=== PATIENT | female | born 1945 | race Caucasian/White ===

== ENCOUNTER → 2016-11-07 | Outpatient (REF) | payer MEDICARE, OTHER ==
[~2016-11-07] MED LIST: /SYST15OP OD; AMOX500C PO; CALC600T7 PO; CIME200T PO; FISH1200 PO; HYDR200T2 PO; HYDR200T3 PO; ICAPCAP3 PO; IRONTAB3 PO; LASI20TA PO; META0.52 PO; METO-207 PO; MICR10CA PO; NIFE15CA PO; OMEP20CA3 PO; RAMI10CA PO; SYST1SOL OD; TAGA200T PO; TYLE325T5 PO; VERA180T11 PO; VITA-112 PO; [UNRECOGNIZED DRUG - CODE] XX; [UNRECOGNIZED DRUG - OTHER] PO; [UNRECOGNIZED DRUG - OTHER] PO
[2016-11-07 17:21] LABS: ANION GAP 7 MEQ/L (8-16); BLOOD UREA NITROGEN 22 MG/DL (7-18); CALCIUM LEVEL 8.5 MG/DL (8.8-10.2); CARBON DIOXIDE LEVEL 30 MEQ/L (21-32); CHLORIDE LEVEL 108 MEQ/L (98-107); CREATININE FOR GFR 0.79 MG/DL (0.55-1.02); GLOMERULAR FILTRATION RATE > 60.0 (>39); GLUCOSE, FASTING 78 MG/DL (83-110); MAGNESIUM LEVEL 2.2 MG/DL (1.8-2.4); POTASSIUM SERUM 4.2 MEQ/L (3.5-5.1); SODIUM LEVEL 145 MEQ/L (136-145)
[2016-11-07 18:32] LABS: MEAN CORPUSCULAR HEMOGLOBIN 31.9 pg (27.0-33.0); MEAN CORPUSCULAR HGB CONC 32.6 g/dl (32.0-36.5); MEAN CORPUSCULAR VOLUME 97.8 fl (80.0-96.0); RED CELL DISTRIBUTION WIDTH 13.6 % (11.5-14.5); WHITE BLOOD COUNT 3.4 K/mm3 (4.0-10.0)
== END ==
LOC: M SFHCCLAY 11:38
PROVIDERS: ATTEND Family Medicine
DX: I27.81 Cor pulmonale (chronic) (principal)
CPT/HCPCS: 80048; 83735; 85027; G0463

== ENCOUNTER → 2017-02-06 | Outpatient (REF) | payer MEDICARE, OTHER ==
[2017-02-06 16:46] LABS: MEAN CORPUSCULAR HEMOGLOBIN 32.4 pg (27.0-33.0); MEAN CORPUSCULAR HGB CONC 33.7 g/dl (32.0-36.5); MEAN CORPUSCULAR VOLUME 96.1 fl (80.0-96.0); RED CELL DISTRIBUTION WIDTH 13.1 % (11.5-14.5); WHITE BLOOD COUNT 3.8 K/mm3 (4.0-10.0)
[2017-02-06 19:56] LABS: ANION GAP 6 MEQ/L (8-16); BLOOD UREA NITROGEN 16 MG/DL (7-18); CALCIUM LEVEL 8.8 MG/DL (8.8-10.2); CARBON DIOXIDE LEVEL 29 MEQ/L (21-32); CHLORIDE LEVEL 109 MEQ/L (98-107); CREATININE FOR GFR 0.71 MG/DL (0.55-1.02); GLOMERULAR FILTRATION RATE > 60.0 (>39); GLUCOSE, FASTING 87 MG/DL (83-110); POTASSIUM SERUM 3.9 MEQ/L (3.5-5.1); SODIUM LEVEL 144 MEQ/L (136-145)
== END ==
LOC: M SFHCCLAY 12:58
PROVIDERS: ATTEND Family Medicine
DX: I10 Essential (primary) hypertension (principal); I35.9 Nonrheumatic aortic valve disorder, unspecified
CPT/HCPCS: 80048; 82550; 85027; G0463

== ENCOUNTER → 2017-06-03 | Outpatient (CLI) | payer MEDICARE, OTHER ==
[~2017-06-03] MED LIST changes: -METO-207 PO; +METO1TAB7 PO
--- NOTE | 2017-06-03 09:31 | REP ---
Bilateral rib series and PA chest: Comparisons are the PA and lateral chest study of 11/23/[address] of 11/24/2013. There are surgical clips in the right axilla, unchanged from both prior studies. Multiple old right healed rib fractures are again identified, unchanged from both prior studies. No acute rib fractures are identified on the right or the left. There are no lytic, blastic or destructive skeletal changes. There are sternotomy wires. This is unchanged. PA chest: There is no pneumothorax, hemothorax or pulmonary contusion. There are surgical clips in the right axilla. Cardiac size is normal. There is a fixed retrocardiac hiatal hernia, unchanged from both prior studies. There are sternotomy wires, unchanged. Impression: No acute rib fracture. Old healed right rib fractures are again identified. Surgical clips in the right axilla. Fixed hiatal hernia. Sternotomy wires. No acute cardiopulmonary findings.
== END ==
LOC: M CLY 08:35
PROVIDERS: ATTEND Family Medicine
DX: R07.81 Pleurodynia (principal)

== ENCOUNTER → 2017-09-10 | Outpatient (REF) | payer MEDICARE, OTHER | LOC: M SFHCCLAY 10:37 | PROVIDERS: ATTEND Nurse Practitioner Family | DX: R60.9 Edema, unspecified (principal); Z23 Encounter for immunization; Z53.8 Procedure and treatment not carried out for other reasons ==

== ENCOUNTER → 2017-10-08 | Outpatient (REF) | payer MEDICARE, OTHER ==
[2017-10-08 17:42] LABS: ANION GAP 8 MEQ/L (8-16); BLOOD UREA NITROGEN 23 MG/DL (7-18); CALCIUM LEVEL 8.7 MG/DL (8.8-10.2); CARBON DIOXIDE LEVEL 28 MEQ/L (21-32); CHLORIDE LEVEL 106 MEQ/L (98-107); CREATININE FOR GFR 0.79 MG/DL (0.55-1.02); GLOMERULAR FILTRATION RATE > 60.0 (>39); GLUCOSE, FASTING 88 MG/DL (70-100); HEMATOCRIT 37.3 % (36.0-47.0); HEMOGLOBIN 12.2 g/dl (12.0-16.0); MEAN CORPUSCULAR HGB CONC 32.7 g/dl (32.0-36.5); MEAN CORPUSCULAR VOLUME 91.6 fl (80.0-96.0); PLATELET COUNT, AUTOMATED 131 10^3/uL (150-450); POTASSIUM SERUM 4.3 MEQ/L (3.5-5.1); RED BLOOD COUNT 4.07 10^6/uL (4.00-5.40); RED CELL DISTRIBUTION WIDTH 12.4 % (11.5-14.5); SODIUM LEVEL 142 MEQ/L (136-145)
== END ==
LOC: M SFHCCLAY 09:41
DX: R60.9 Edema, unspecified (principal); I10 Essential (primary) hypertension; Z95.3 Presence of xenogenic heart valve
CPT/HCPCS: 83735

== ENCOUNTER 2017-11-02 09:30 | Inpatient (IN) | payer MEDICARE, OTHER ==
[2017-11-02 10:13] LABS: BASO % 0.1 % (0.0-1.0); HEMATOCRIT 38.3 % (36.0-47.0); HEMOGLOBIN 12.6 g/dl (12.0-16.0); IMMATURE GRANULOCYTE % 0.3 % (0-3.0); LYMPH # 0.4 10^3/uL (1.5-4.5); MEAN CORPUSCULAR HEMOGLOBIN 29.4 pg (27.0-33.0); MEAN CORPUSCULAR HGB CONC 32.9 g/dl (32.0-36.5); MEAN CORPUSCULAR VOLUME 89.5 fl (80.0-96.0); MONO # 0.5 10^3/uL (0.0-0.8); MONO % 6.2 % (0.0-5.0); NEUTROPHILS # 6.3 10^3/uL (1.8-7.7); NEUTROPHILS % 87.4 % (36.0-66.0); PLATELET COUNT, AUTOMATED 128 10^3/uL (150-450); RED BLOOD COUNT 4.28 10^6/uL (4.00-5.40); RED CELL DISTRIBUTION WIDTH 12.6 % (11.5-14.5); WHITE BLOOD COUNT 7.2 10^3/uL (4.0-10.0)
[2017-11-02 10:39] LABS: ANION GAP 9 MEQ/L (8-16); BLOOD UREA NITROGEN 16 MG/DL (7-18); CALCIUM LEVEL 8.5 MG/DL (8.8-10.2); CARBON DIOXIDE LEVEL 28 MEQ/L (21-32); CHLORIDE LEVEL 105 MEQ/L (98-107); CK-MB VALUE MASS 11.7 NG/ML (0.0-3.6); CPK CREATINE PHOSPHOKINASE 510 U/L (26-192); CREATININE FOR GFR 0.61 MG/DL (0.55-1.30); GLOMERULAR FILTRATION RATE > 60.0 (>39); GLUCOSE, FASTING 117 MG/DL (70-100); MB/CK RELATIVE INDEX 2.29 (< OR =4); POTASSIUM SERUM 3.5 MEQ/L (3.5-5.1); SODIUM LEVEL 142 MEQ/L (136-145); TROPONIN I 0.04 NG/ML (< 0.10)
[2017-11-02 10:42] LABS: INR 0.93; PARTIAL THROMBOPLASTIN TIME 26.5 SECONDS (26.8-37.9); PROTHROMBIN TIME 12.5 SECONDS (12.4-14.5)
[2017-11-02] MEDS: NS 1,000 ML IV ×2 (11:13→18:14)
[2017-11-02] MEDS: MORPHINE 2 MG/ML 1ML SYRINGE (J2270) IV ×2 (11:13→13:23)
[2017-11-02] MEDS: ONDANSETRON 4MG/2ML VIAL (J2405) IV (11:13)
[2017-11-02] MEDS: LABETALOL HCL 100 MG/20 ML VIAL IV (12:09)
[2017-11-02] MEDS: LABETALOL 100 MG TAB PO (13:23)
[2017-11-02] MEDS: LOSARTAN 50 MG TAB PO (18:23)
[2017-11-02] MEDS: MORPHINE 4 MG/ML 1ML VIAL (J2270) IV (23:02)
[2017-11-03] MEDS: MORPHINE 4 MG/ML 1ML VIAL (J2270) IV ×3 (01:28→20:09)
[2017-11-03] MEDS: NS 1,000 ML IV ×2 (04:36→10:12)
[2017-11-03] MEDS: LOSARTAN 50 MG TAB PO (10:00)
[2017-11-03 10:13] LABS: HEMATOCRIT 36.4 % (36.0-47.0); HEMOGLOBIN 11.7 g/dl (12.0-16.0); MEAN CORPUSCULAR HGB CONC 32.1 g/dl (32.0-36.5); MEAN CORPUSCULAR VOLUME 90.3 fl (80.0-96.0); PLATELET COUNT, AUTOMATED 104 10^3/uL (150-450); RED BLOOD COUNT 4.03 10^6/uL (4.00-5.40); RED CELL DISTRIBUTION WIDTH 12.8 % (11.5-14.5); WHITE BLOOD COUNT 6.4 10^3/uL (4.0-10.0)
[2017-11-03 10:39] LABS: ANION GAP 6 MEQ/L (8-16); BLOOD UREA NITROGEN 16 MG/DL (7-18); CALCIUM LEVEL 7.9 MG/DL (8.8-10.2); CARBON DIOXIDE LEVEL 30 MEQ/L (21-32); CHLORIDE LEVEL 108 MEQ/L (98-107); GLOMERULAR FILTRATION RATE > 60.0 (>39); GLUCOSE, FASTING 103 MG/DL (70-100); SODIUM LEVEL 144 MEQ/L (136-145)
[2017-11-03] MEDS ORDERED: ceFAZolin 2 GM/D5W 50 ML IV BAG (J0690 PER 500MG) As Ordered (15:15)
[2017-11-03] MEDS ORDERED: LIDOCAINE 2% INJ 100 MG/5 ML SDV (FOR ANES.) As Ordered (15:39)
[2017-11-03] MEDS ORDERED: PHENYLephrine HCL 500 MCG/5 ML (100MCG/ML) SYRINGE (J2370) As Ordered ×3 (15:39→15:40)
[2017-11-03] MEDS ORDERED: BUPIVACAINE HCL 0.5% 30 ML VIAL As Ordered (15:39)
[2017-11-03] MEDS ORDERED: PROPOFOL 200 MG/20 ML VIAL As Ordered (15:39)
[2017-11-03] MEDS ORDERED: fentaNYL 100 MCG/2 ML INJECTION (J3010) As Ordered (15:39)
[2017-11-03] MEDS ORDERED: MIDAZOLAM INJ 2 MG/2 ML VIAL (J2250) As Ordered (15:39)
[2017-11-03] MEDS ORDERED: KETAMINE HCL 200 MG/20 ML VIAL As Ordered (15:40)
[2017-11-03] MEDS: EPINEPHrine INJ 1 MG/ML 1ML AMP As Ordered (15:50)
[2017-11-03] MEDS: ceFAZolin 1GM INJ (J0690 PER 500MG) As Ordered (15:50)
[2017-11-03] MEDS ORDERED: ALBUTEROL SULFATE 2.5 MG/0.5 ML INH NEB SOLN As Ordered (17:33)
[2017-11-03] MEDS ORDERED: MEPERIDINE INJ 25 MG/ML VIAL (J2175) As Ordered (17:56)
[2017-11-03] MEDS ORDERED: FLEET ENEMA PR (18:00)
[2017-11-03] MEDS ORDERED: ONDANSETRON 4MG/2ML VIAL (J2405) IV (18:15)
[2017-11-03] MEDS ORDERED: HYDROmorphone HCL 1 MG/ML SYRINGE (J1170) IV (18:15)
[2017-11-03] MEDS: LR 1,000 ML IV ×2 (18:15→21:58)
[2017-11-03] MEDS ORDERED: fentaNYL 100 MCG/2 ML INJECTION (J3010) IV (18:15)
[2017-11-03] MEDS ORDERED: PERCOCET 5MG/325MG TAB PO (18:15)
[2017-11-03] MEDS ORDERED: MEPERIDINE INJ 25 MG/ML VIAL (J2175) IV (18:30)
[2017-11-03] MEDS: PERCOCET 5MG/325MG TAB PO (20:08)
[2017-11-04] MEDS: MORPHINE 4 MG/ML 1ML VIAL (J2270) IV ×2 (01:07→05:02)
[2017-11-04] MEDS: PERCOCET 5MG/325MG TAB PO (02:51)
[2017-11-04 05:26] LABS: HEMATOCRIT 30.3 % (36.0-47.0); HEMOGLOBIN 9.8 g/dl (12.0-16.0); MEAN CORPUSCULAR HEMOGLOBIN 29.2 pg (27.0-33.0); MEAN CORPUSCULAR HGB CONC 32.3 g/dl (32.0-36.5); MEAN CORPUSCULAR VOLUME 90.2 fl (80.0-96.0); RED BLOOD COUNT 3.36 10^6/uL (4.00-5.40); RED CELL DISTRIBUTION WIDTH 12.9 % (11.5-14.5); WHITE BLOOD COUNT 7.6 10^3/uL (4.0-10.0)
[2017-11-04 05:29] LABS: PLATELET COUNT, AUTOMATED 96 10^3/uL (150-450)
[2017-11-04 05:30] LABS: IMMATURE PLATELET FRACTION % 5.4 % (0.0-9.6)
[2017-11-04 05:36] LABS: ANION GAP 6 MEQ/L (8-16); BLOOD UREA NITROGEN 20 MG/DL (7-18); CARBON DIOXIDE LEVEL 29 MEQ/L (21-32); CHLORIDE LEVEL 108 MEQ/L (98-107); CREATININE FOR GFR 0.71 MG/DL (0.55-1.30); GLOMERULAR FILTRATION RATE > 60.0 (>39); GLUCOSE, FASTING 110 MG/DL (70-100); SODIUM LEVEL 143 MEQ/L (136-145)
[2017-11-04] MEDS: ENOXAPARIN 40 MG/0.4 ML SYRINGE (J1650) SC (08:00)
[2017-11-04] MEDS: MOM 30ML SUSPENSION UDC PO (09:15)
[2017-11-04] MEDS: MIRALAX *UNIT DOSE* 17GM PACKET PO (09:15)
[2017-11-04] MEDS: SENOKOT S TAB PO ×2 (09:15→21:16)
[2017-11-04] MEDS ORDERED: SLF 3 ML SYR IV (11:30)
[2017-11-04] MEDS: ACETAMINOPHEN TAB 650MG DOSE (2X325MG) PO ×2 (12:57→21:41)
[2017-11-04] MEDS: LOSARTAN 50 MG TAB PO (12:57)
[2017-11-04] MEDS: SLF 3 ML SYR IV ×2 (13:59→21:16)
[2017-11-04] MEDS: HYDROXYCHLOROQUINE 200 MG TAB PO ×2 (13:59→21:16)
[2017-11-04] MEDS: traMADol 50 MG TAB PO ×2 (18:28→22:45)
[2017-11-05] MEDS: SLF 3 ML SYR IV ×3 (05:54→21:37)
[2017-11-05] MEDS: ENOXAPARIN 40 MG/0.4 ML SYRINGE (J1650) SC (08:00)
[2017-11-05 08:08] LABS: HEMATOCRIT 30.8 % (36.0-47.0); HEMOGLOBIN 9.9 g/dl (12.0-16.0); MEAN CORPUSCULAR HEMOGLOBIN 28.9 pg (27.0-33.0); MEAN CORPUSCULAR HGB CONC 32.1 g/dl (32.0-36.5); MEAN CORPUSCULAR VOLUME 90.1 fl (80.0-96.0); PLATELET COUNT, AUTOMATED 114 10^3/uL (150-450); RED BLOOD COUNT 3.42 10^6/uL (4.00-5.40); WHITE BLOOD COUNT 8.5 10^3/uL (4.0-10.0)
[2017-11-05] MEDS: LOSARTAN 50 MG TAB PO (08:55)
[2017-11-05] MEDS: MOM 30ML SUSPENSION UDC PO (08:55)
[2017-11-05] MEDS: HYDROXYCHLOROQUINE 200 MG TAB PO ×2 (08:55→21:37)
[2017-11-05] MEDS: MIRALAX *UNIT DOSE* 17GM PACKET PO (08:55)
[2017-11-05] MEDS: SENOKOT S TAB PO ×2 (08:55→21:37)
[2017-11-05] MEDS: traMADol 50 MG TAB PO (10:44)
[2017-11-05] MEDS ORDERED: METOPROLOL 5 MG/5 ML VIAL IV (12:56)
[2017-11-05] MEDS: METOPROLOL TART 25 MG TABLET PO ×3 (13:22→23:19)
[2017-11-05 13:31] LABS: ABG BASE EXCESS 2.3 (-2.0-2.0); ABG HCO3 26.3 MEQ/L (22.0-26.0); ABG O2 SATURATION 97.2 % (95.0-99.0); ABG PARTIAL PRESSURE CO2 38.4 mmHg (35.0-45.0); ABG PARTIAL PRESSURE O2 90.8 mmHg (75.0-100.0); ABG STANDARD HCO3 26.5 MEQ/L (22.0-26.0); ABG TOTAL CO2 27.4 MEQ/L (23.0-31.0); ABG pH (ARTERIAL) 7.453 UNITS (7.350-7.450)
[2017-11-05 14:19] LABS: CPK CREATINE PHOSPHOKINASE 288 U/L (26-192); MAGNESIUM LEVEL 2.7 MG/DL (1.8-2.4); TROPONIN I 0.83 NG/ML (< 0.10)
[2017-11-05 14:23] LABS: CK-MB VALUE MASS 2.1 NG/ML (0.0-3.6); MB/CK RELATIVE INDEX 0.72 (< OR =4)
[2017-11-05] MEDS: METOPROLOL 5 MG/5 ML VIAL IV (16:12)
[2017-11-05 20:08] LABS: AMMONIA 15 uMOL/L (<32); TROPONIN I 0.82 NG/ML (< 0.10)
[2017-11-05] MEDS: ACETAMINOPHEN TAB 650MG DOSE (2X325MG) PO (21:37)
[2017-11-05] MEDS: METOPROLOL TART 50 MG TAB PO (22:18)
[2017-11-06] MEDS: DIGOXIN INJ 0.5 MG/2 ML AMP (J1160) IV ×2 (00:18→01:50)
[2017-11-06] MEDS: SLF 3 ML SYR IV ×3 (05:07→20:07)
[2017-11-06] MEDS: METOPROLOL TART 25 MG TABLET PO (05:07)
[2017-11-06 05:34] LABS: HEMATOCRIT 31.7 % (36.0-47.0); HEMOGLOBIN 10.1 g/dl (12.0-16.0); MEAN CORPUSCULAR HEMOGLOBIN 28.9 pg (27.0-33.0); MEAN CORPUSCULAR HGB CONC 31.9 g/dl (32.0-36.5); MEAN CORPUSCULAR VOLUME 90.8 fl (80.0-96.0); PLATELET COUNT, AUTOMATED 122 10^3/uL (150-450); RED BLOOD COUNT 3.49 10^6/uL (4.00-5.40); RED CELL DISTRIBUTION WIDTH 13.3 % (11.5-14.5); WHITE BLOOD COUNT 7.8 10^3/uL (4.0-10.0)
[2017-11-06 05:58] LABS: ALBUMIN 2.1 GM/DL (3.2-5.2); ALBUMIN/GLOBULIN RATIO 0.51 (1.00-1.93); ALKALINE PHOSPHATASE 64 U/L (45-117); ALT/SGPT 17 U/L (12-78); ANION GAP 5 MEQ/L (8-16); AST/SGOT 28 U/L (7-37); BILIRUBIN,TOTAL 0.4 MG/DL (0.2-1.0); CARBON DIOXIDE LEVEL 29 MEQ/L (21-32); CHLORIDE LEVEL 105 MEQ/L (98-107); GLOMERULAR FILTRATION RATE > 60.0 (>39); GLUCOSE, FASTING 89 MG/DL (70-100); POTASSIUM SERUM 4.3 MEQ/L (3.5-5.1); SODIUM LEVEL 139 MEQ/L (136-145); TOTAL PROTEIN 6.2 GM/DL (6.4-8.2)
[2017-11-06 06:11] LABS: BLOOD UREA NITROGEN 32 MG/DL (7-18)
[2017-11-06 08:08] LABS: MAGNESIUM LEVEL 2.8 MG/DL (1.8-2.4)
[2017-11-06] MEDS: ENOXAPARIN 40 MG/0.4 ML SYRINGE (J1650) SC (08:11)
[2017-11-06] MEDS: MIRALAX *UNIT DOSE* 17GM PACKET PO (08:11)
[2017-11-06] MEDS: SENOKOT S TAB PO ×2 (08:12→20:06)
[2017-11-06] MEDS: ACETAMINOPHEN TAB 650MG DOSE (2X325MG) PO (08:12)
[2017-11-06] MEDS: HYDROXYCHLOROQUINE 200 MG TAB PO ×3 (08:12→20:06)
[2017-11-06] MEDS: LOSARTAN 25 MG TAB PO (09:54)
[2017-11-06] MEDS: DIGOXIN 0.125 MG TAB PO (09:55)
[2017-11-06] MEDS: METOPROLOL 5 MG/5 ML VIAL IV (10:41)
[2017-11-06] MEDS: METOPROLOL TART 50 MG TAB PO ×2 (11:42→17:43)
[2017-11-06] MEDS: LORazepam 0.5 MG TAB PO (20:06)
[2017-11-06] MEDS ORDERED: ceFAZolin 2 GM/D5W 50 ML IV BAG (J0690 PER 500MG) (20:18)
[2017-11-06] MEDS: LORazepam 1 MG TAB PO (21:56)
[2017-11-07] MEDS: METOPROLOL TART 50 MG TAB PO ×3 (01:10→12:39)
[2017-11-07] MEDS: SLF 3 ML SYR IV ×3 (05:33→21:57)
[2017-11-07 05:53] LABS: HEMOGLOBIN 10.5 g/dl (12.0-16.0); MEAN CORPUSCULAR HEMOGLOBIN 28.5 pg (27.0-33.0); MEAN CORPUSCULAR HGB CONC 31.8 g/dl (32.0-36.5); MEAN CORPUSCULAR VOLUME 89.7 fl (80.0-96.0); PLATELET COUNT, AUTOMATED 140 10^3/uL (150-450); RED BLOOD COUNT 3.68 10^6/uL (4.00-5.40); RED CELL DISTRIBUTION WIDTH 12.9 % (11.5-14.5); WHITE BLOOD COUNT 7.6 10^3/uL (4.0-10.0)
[2017-11-07 06:18] LABS: ANION GAP 6 MEQ/L (8-16); BLOOD UREA NITROGEN 21 MG/DL (7-18); CALCIUM LEVEL 8.1 MG/DL (8.8-10.2); CARBON DIOXIDE LEVEL 28 MEQ/L (21-32); CHLORIDE LEVEL 106 MEQ/L (98-107); CREATININE FOR GFR 0.47 MG/DL (0.55-1.30); GLOMERULAR FILTRATION RATE > 60.0 (>39); GLUCOSE, FASTING 101 MG/DL (70-100); POTASSIUM SERUM 4.3 MEQ/L (3.5-5.1); SODIUM LEVEL 140 MEQ/L (136-145)
[2017-11-07] MEDS: ACETAMINOPHEN TAB 650MG DOSE (2X325MG) PO ×2 (06:51→21:57)
[2017-11-07] MEDS: HYDROXYCHLOROQUINE 200 MG TAB PO ×2 (08:49→21:54)
[2017-11-07] MEDS: DIGOXIN 0.125 MG TAB PO (08:50)
[2017-11-07] MEDS: SENOKOT S TAB PO ×2 (08:50→21:00)
[2017-11-07] MEDS: MIRALAX *UNIT DOSE* 17GM PACKET PO (08:51)
[2017-11-07] MEDS: APIXABAN 5 MG TAB (ELIQUIS) PO ×2 (08:51→21:54)
[2017-11-07] MEDS: oxyCODONE 5MG TAB PO ×2 (12:41→21:55)
[2017-11-07] MEDS: METOPROLOL TARTRATE 100 MG TAB PO (21:54)
[2017-11-08] MEDS: SLF 3 ML SYR IV ×3 (06:00→20:10)
[2017-11-08 06:32] LABS: HEMATOCRIT 32.1 % (36.0-47.0); HEMOGLOBIN 10.3 g/dl (12.0-16.0); MEAN CORPUSCULAR HEMOGLOBIN 28.6 pg (27.0-33.0); MEAN CORPUSCULAR HGB CONC 32.1 g/dl (32.0-36.5); MEAN CORPUSCULAR VOLUME 89.2 fl (80.0-96.0); PLATELET COUNT, AUTOMATED 158 10^3/uL (150-450); RED CELL DISTRIBUTION WIDTH 12.8 % (11.5-14.5); WHITE BLOOD COUNT 5.4 10^3/uL (4.0-10.0)
[2017-11-08 06:48] LABS: ANION GAP 5 MEQ/L (8-16); BLOOD UREA NITROGEN 20 MG/DL (7-18); CALCIUM LEVEL 8.4 MG/DL (8.8-10.2); CARBON DIOXIDE LEVEL 30 MEQ/L (21-32); CHLORIDE LEVEL 107 MEQ/L (98-107); CREATININE FOR GFR 0.47 MG/DL (0.55-1.30); GLOMERULAR FILTRATION RATE > 60.0 (>39); GLUCOSE, FASTING 92 MG/DL (70-100); POTASSIUM SERUM 4.3 MEQ/L (3.5-5.1); SODIUM LEVEL 142 MEQ/L (136-145)
[2017-11-08] MEDS: SENOKOT S TAB PO ×2 (08:56→20:10)
[2017-11-08] MEDS: DIGOXIN 0.125 MG TAB PO (08:56)
[2017-11-08] MEDS: APIXABAN 5 MG TAB (ELIQUIS) PO ×2 (08:56→20:10)
[2017-11-08] MEDS: MIRALAX *UNIT DOSE* 17GM PACKET PO (08:56)
[2017-11-08] MEDS: oxyCODONE 5MG TAB PO ×3 (08:57→23:16)
[2017-11-08] MEDS: LORazepam 1 MG TAB PO (08:57)
[2017-11-08] MEDS: METOPROLOL TARTRATE 100 MG TAB PO ×2 (08:59→20:10)
[2017-11-08] MEDS: HYDROXYCHLOROQUINE 200 MG TAB PO ×2 (14:14→20:10)
[2017-11-08] MEDS: LOSARTAN 25 MG TAB PO (16:14)
[2017-11-08] MEDS: NYSTATIN 100,000 UNITS/GM TOPICAL PWD 15 GM TOP (20:52)
[2017-11-09] MEDS: SLF 3 ML SYR IV ×3 (05:38→19:50)
[2017-11-09 05:51] LABS: HEMOGLOBIN 10.1 g/dl (12.0-16.0); MEAN CORPUSCULAR HEMOGLOBIN 28.3 pg (27.0-33.0); MEAN CORPUSCULAR HGB CONC 32.6 g/dl (32.0-36.5); MEAN CORPUSCULAR VOLUME 86.8 fl (80.0-96.0); PLATELET COUNT, AUTOMATED 194 10^3/uL (150-450); RED BLOOD COUNT 3.57 10^6/uL (4.00-5.40); RED CELL DISTRIBUTION WIDTH 12.9 % (11.5-14.5); WHITE BLOOD COUNT 5.6 10^3/uL (4.0-10.0)
[2017-11-09 06:24] LABS: ANION GAP 8 MEQ/L (8-16); BLOOD UREA NITROGEN 15 MG/DL (7-18); CALCIUM LEVEL 8.5 MG/DL (8.8-10.2); CARBON DIOXIDE LEVEL 29 MEQ/L (21-32); CHLORIDE LEVEL 102 MEQ/L (98-107); GLOMERULAR FILTRATION RATE > 60.0 (>39); GLUCOSE, FASTING 92 MG/DL (70-100); POTASSIUM SERUM 4.1 MEQ/L (3.5-5.1); SODIUM LEVEL 139 MEQ/L (136-145)
[2017-11-09] MEDS: LORazepam 1 MG TAB PO ×2 (06:47→18:53)
[2017-11-09] MEDS: LOSARTAN 25 MG TAB PO (09:41)
[2017-11-09] MEDS: DIGOXIN 0.125 MG TAB PO (09:43)
[2017-11-09] MEDS: METOPROLOL TARTRATE 100 MG TAB PO ×2 (09:43→19:51)
[2017-11-09] MEDS: SENOKOT S TAB PO ×2 (09:43→19:51)
[2017-11-09] MEDS: NYSTATIN 100,000 UNITS/GM TOPICAL PWD 15 GM TOP ×2 (09:44→19:51)
[2017-11-09] MEDS: MIRALAX *UNIT DOSE* 17GM PACKET PO (09:44)
[2017-11-09] MEDS: HYDROXYCHLOROQUINE 200 MG TAB PO ×2 (09:44→19:51)
[2017-11-09] MEDS: APIXABAN 5 MG TAB (ELIQUIS) PO ×2 (09:44→19:51)
[2017-11-09] MEDS: ESCITALOPRAM OXALATE 10 MG TAB (LEXAPRO) PO (17:36)
[2017-11-09] MEDS: ACETAMINOPHEN TAB 650MG DOSE (2X325MG) PO (17:36)
[2017-11-10 03:31] LABS: HEMATOCRIT 29.9 % (36.0-47.0); HEMOGLOBIN 9.9 g/dl (12.0-16.0); MEAN CORPUSCULAR HEMOGLOBIN 28.4 pg (27.0-33.0); MEAN CORPUSCULAR HGB CONC 33.1 g/dl (32.0-36.5); MEAN CORPUSCULAR VOLUME 85.9 fl (80.0-96.0); PLATELET COUNT, AUTOMATED 208 10^3/uL (150-450); RED BLOOD COUNT 3.48 10^6/uL (4.00-5.40); WHITE BLOOD COUNT 5.6 10^3/uL (4.0-10.0)
[2017-11-10 04:08] LABS: BLOOD UREA NITROGEN 14 MG/DL (7-18); GLUCOSE, FASTING 102 MG/DL (70-100)
[2017-11-10 04:09] LABS: ANION GAP 7 MEQ/L (8-16); CALCIUM LEVEL 7.9 MG/DL (8.8-10.2); CARBON DIOXIDE LEVEL 30 MEQ/L (21-32); CHLORIDE LEVEL 104 MEQ/L (98-107); CREATININE FOR GFR 0.51 MG/DL (0.55-1.30); DIGOXIN LEVEL 0.6 NG/ML (0.5-2.0); GLOMERULAR FILTRATION RATE > 60.0 (>39); MAGNESIUM LEVEL 1.9 MG/DL (1.8-2.4); SODIUM LEVEL 141 MEQ/L (136-145)
[2017-11-10] MEDS: SLF 3 ML SYR IV ×3 (05:36→20:33)
[2017-11-10] MEDS: LORazepam 1 MG TAB PO ×2 (05:36→18:02)
[2017-11-10] MEDS: MIRALAX *UNIT DOSE* 17GM PACKET PO (09:00)
[2017-11-10] MEDS: SENOKOT S TAB PO ×2 (09:00→20:33)
[2017-11-10] MEDS: NYSTATIN 100,000 UNITS/GM TOPICAL PWD 15 GM TOP ×2 (09:56→20:34)
[2017-11-10] MEDS: ESCITALOPRAM OXALATE 10 MG TAB (LEXAPRO) PO (09:56)
[2017-11-10] MEDS: METOPROLOL TARTRATE 100 MG TAB PO ×2 (10:01→20:33)
[2017-11-10] MEDS: DIGOXIN 0.125 MG TAB PO (10:02)
[2017-11-10] MEDS: APIXABAN 5 MG TAB (ELIQUIS) PO ×2 (10:02→20:33)
[2017-11-10] MEDS: HYDROXYCHLOROQUINE 200 MG TAB PO ×2 (10:03→20:33)
[2017-11-10] MEDS: LOSARTAN 50 MG TAB PO (10:03)
[2017-11-11] MEDS: oxyCODONE 5MG TAB PO ×2 (04:15→22:41)
[2017-11-11] MEDS: SLF 3 ML SYR IV ×3 (05:11→20:49)
[2017-11-11 06:10] LABS: HEMOGLOBIN 10.7 g/dl (12.0-16.0); MEAN CORPUSCULAR HGB CONC 32.4 g/dl (32.0-36.5); MEAN CORPUSCULAR VOLUME 86.4 fl (80.0-96.0); PLATELET COUNT, AUTOMATED 242 10^3/uL (150-450); RED BLOOD COUNT 3.82 10^6/uL (4.00-5.40); RED CELL DISTRIBUTION WIDTH 13.1 % (11.5-14.5); WHITE BLOOD COUNT 4.9 10^3/uL (4.0-10.0)
[2017-11-11 06:29] LABS: ANION GAP 8 MEQ/L (8-16); BLOOD UREA NITROGEN 14 MG/DL (7-18); CALCIUM LEVEL 8.4 MG/DL (8.8-10.2); CARBON DIOXIDE LEVEL 29 MEQ/L (21-32); CHLORIDE LEVEL 103 MEQ/L (98-107); CREATININE FOR GFR 0.56 MG/DL (0.55-1.30); GLOMERULAR FILTRATION RATE > 60.0 (>39); GLUCOSE, FASTING 84 MG/DL (70-100); SODIUM LEVEL 140 MEQ/L (136-145)
[2017-11-11] MEDS: MIRALAX *UNIT DOSE* 17GM PACKET PO (09:00)
[2017-11-11] MEDS: SENOKOT S TAB PO ×2 (09:12→20:31)
[2017-11-11] MEDS: APIXABAN 5 MG TAB (ELIQUIS) PO ×2 (09:18→20:47)
[2017-11-11] MEDS: ESCITALOPRAM OXALATE 10 MG TAB (LEXAPRO) PO (09:18)
[2017-11-11] MEDS: HYDROXYCHLOROQUINE 200 MG TAB PO ×2 (09:18→20:48)
[2017-11-11] MEDS: NYSTATIN 100,000 UNITS/GM TOPICAL PWD 15 GM TOP ×2 (09:20→20:48)
[2017-11-11] MEDS: METOPROLOL TARTRATE 100 MG TAB PO ×2 (09:20→20:48)
[2017-11-11] MEDS: LOSARTAN 50 MG TAB PO (09:20)
[2017-11-11] MEDS: DIGOXIN 0.25 MG TAB PO (09:34)
[2017-11-11] MEDS: POTASSIUM CHLORIDE 10 MEQ SR TABLET PO ×2 (10:33→20:47)
[2017-11-11] MEDS: TORSEMIDE 20 MG TAB PO (10:33)
[2017-11-11] MEDS: LORazepam 0.5 MG TAB PO (10:34)
[2017-11-11] MEDS: DIGOXIN INJ 0.5 MG/2 ML AMP (J1160) IV (13:19)
[2017-11-11] MEDS: FUROSEMIDE 40 MG/4 ML VIAL (J1940) IV (13:46)
[2017-11-11] MEDS: ONDANSETRON 4MG/2ML VIAL (J2405) IV (22:40)
[2017-11-12 04:08] LABS: HEMATOCRIT 33.1 % (36.0-47.0); HEMOGLOBIN 10.9 g/dl (12.0-16.0); MEAN CORPUSCULAR HGB CONC 32.9 g/dl (32.0-36.5); PLATELET COUNT, AUTOMATED 238 10^3/uL (150-450); RED BLOOD COUNT 3.76 10^6/uL (4.00-5.40); RED CELL DISTRIBUTION WIDTH 13.3 % (11.5-14.5); WHITE BLOOD COUNT 8.8 10^3/uL (4.0-10.0)
[2017-11-12 04:35] LABS: ANION GAP 8 MEQ/L (8-16); BLOOD UREA NITROGEN 22 MG/DL (7-18); CALCIUM LEVEL 8.3 MG/DL (8.8-10.2); CARBON DIOXIDE LEVEL 31 MEQ/L (21-32); CHLORIDE LEVEL 100 MEQ/L (98-107); GLOMERULAR FILTRATION RATE > 60.0 (>39); GLUCOSE, FASTING 83 MG/DL (70-100); POTASSIUM SERUM 3.9 MEQ/L (3.5-5.1); SODIUM LEVEL 139 MEQ/L (136-145)
[2017-11-12] MEDS: SLF 3 ML SYR IV ×3 (05:37→21:57)
[2017-11-12] MEDS: NS 1,000 ML IV (05:38)
[2017-11-12] MEDS: SENOKOT S TAB PO ×2 (09:00→21:56)
[2017-11-12] MEDS: MIRALAX *UNIT DOSE* 17GM PACKET PO (09:00)
[2017-11-12] MEDS: APIXABAN 5 MG TAB (ELIQUIS) PO ×2 (09:30→21:56)
[2017-11-12] MEDS: DIGOXIN 0.25 MG TAB PO (09:30)
[2017-11-12] MEDS: LOSARTAN 50 MG TAB PO (09:31)
[2017-11-12] MEDS: METOPROLOL TARTRATE 100 MG TAB PO ×2 (09:31→22:02)
[2017-11-12] MEDS: TORSEMIDE 20 MG TAB PO (09:31)
[2017-11-12] MEDS: POTASSIUM CHLORIDE 10 MEQ SR TABLET PO (09:32)
[2017-11-12] MEDS: HYDROXYCHLOROQUINE 200 MG TAB PO ×2 (09:32→21:57)
[2017-11-12] MEDS: ESCITALOPRAM OXALATE 10 MG TAB (LEXAPRO) PO (09:33)
[2017-11-12] MEDS: NYSTATIN 100,000 UNITS/GM TOPICAL PWD 15 GM TOP ×2 (09:33→21:57)
[2017-11-12] MEDS: LORazepam 0.5 MG TAB PO (15:10)
[2017-11-12] MEDS ORDERED: METOPROLOL TART 50 MG TAB PO (18:00)
[2017-11-12] MEDS: AMIODARONE 200 MG TAB (PACERONE) PO (22:01)
[2017-11-12] MEDS: POTASSIUM CHLORIDE 10% LIQ 20 MEQ/15 ML UDC PO (23:08)
[2017-11-13] MEDS: METOPROLOL TART 50 MG TAB PO ×5 (05:16→23:52)
[2017-11-13] MEDS: SLF 3 ML SYR IV ×3 (05:16→21:19)
[2017-11-13 07:05] LABS: HEMATOCRIT 34.5 % (36.0-47.0); HEMOGLOBIN 11.2 g/dl (12.0-16.0); MEAN CORPUSCULAR HEMOGLOBIN 28.5 pg (27.0-33.0); MEAN CORPUSCULAR HGB CONC 32.5 g/dl (32.0-36.5); MEAN CORPUSCULAR VOLUME 87.8 fl (80.0-96.0); PLATELET COUNT, AUTOMATED 265 10^3/uL (150-450); RED BLOOD COUNT 3.93 10^6/uL (4.00-5.40); RED CELL DISTRIBUTION WIDTH 13.3 % (11.5-14.5); WHITE BLOOD COUNT 7.5 10^3/uL (4.0-10.0)
[2017-11-13 07:27] LABS: ANION GAP 7 MEQ/L (8-16); BLOOD UREA NITROGEN 31 MG/DL (7-18); CALCIUM LEVEL 8.9 MG/DL (8.8-10.2); CARBON DIOXIDE LEVEL 33 MEQ/L (21-32); CHLORIDE LEVEL 99 MEQ/L (98-107); CREATININE FOR GFR 0.81 MG/DL (0.55-1.30); GLOMERULAR FILTRATION RATE > 60.0 (>39); GLUCOSE, FASTING 85 MG/DL (70-100); SODIUM LEVEL 139 MEQ/L (136-145)
[2017-11-13] MEDS: MIRALAX *UNIT DOSE* 17GM PACKET PO (09:45)
[2017-11-13] MEDS: TORSEMIDE 20 MG TAB PO (09:45)
[2017-11-13] MEDS: APIXABAN 5 MG TAB (ELIQUIS) PO ×2 (09:46→21:17)
[2017-11-13] MEDS: POTASSIUM CHLORIDE 10% LIQ 20 MEQ/15 ML UDC PO ×2 (09:46→21:17)
[2017-11-13] MEDS: SENOKOT S TAB PO ×2 (09:46→21:00)
[2017-11-13] MEDS: HYDROXYCHLOROQUINE 200 MG TAB PO ×2 (09:46→21:17)
[2017-11-13] MEDS: LOSARTAN 50 MG TAB PO (09:46)
[2017-11-13] MEDS: AMIODARONE 200 MG TAB (PACERONE) PO ×4 (09:46→21:17)
[2017-11-13] MEDS: ESCITALOPRAM OXALATE 10 MG TAB (LEXAPRO) PO (09:46)
[2017-11-13] MEDS: NYSTATIN 100,000 UNITS/GM TOPICAL PWD 15 GM TOP ×2 (09:47→21:00)
[2017-11-13 11:11] LABS: BEDSIDE GLUCOSE 127 MG/DL (83-110)
[2017-11-13 12:48] LABS: ANION GAP 8 MEQ/L (8-16); BLOOD UREA NITROGEN 35 MG/DL (7-18); CALCIUM LEVEL 8.9 MG/DL (8.8-10.2); CARBON DIOXIDE LEVEL 31 MEQ/L (21-32); CHLORIDE LEVEL 99 MEQ/L (98-107); CK-MB VALUE MASS 1.2 NG/ML (0.0-3.6); CPK CREATINE PHOSPHOKINASE 33 U/L (26-192); CREATININE FOR GFR 0.95 MG/DL (0.55-1.30); GLOMERULAR FILTRATION RATE > 60.0 (>39); GLUCOSE, FASTING 120 MG/DL (70-100); MAGNESIUM LEVEL 2.4 MG/DL (1.8-2.4); MB/CK RELATIVE INDEX 3.63 (< OR =4); POTASSIUM SERUM 4.5 MEQ/L (3.5-5.1); SODIUM LEVEL 138 MEQ/L (136-145); TROPONIN I 0.06 NG/ML (< 0.10)
[2017-11-13] MEDS: NS 500 ML IV (13:21)
[2017-11-13] MEDS ORDERED: PILL CUTTER/CRUSHER XX (18:15)
[2017-11-13] MEDS: D5W/0.45% SODIUM CHLORIDE 1,000 ML IV (18:19)
[2017-11-13] MEDS: NS 1,000 ML IV (21:17)
[2017-11-14] MEDS: NS 1,000 ML IV ×3 (04:54→20:14)
[2017-11-14] MEDS: SLF 3 ML SYR IV ×3 (05:17→20:14)
[2017-11-14] MEDS: METOPROLOL TART 50 MG TAB PO ×4 (05:21→23:35)
[2017-11-14 05:49] LABS: HEMATOCRIT 33.3 % (36.0-47.0); HEMOGLOBIN 10.7 g/dl (12.0-16.0); MEAN CORPUSCULAR HEMOGLOBIN 28.2 pg (27.0-33.0); MEAN CORPUSCULAR HGB CONC 32.1 g/dl (32.0-36.5); MEAN CORPUSCULAR VOLUME 87.9 fl (80.0-96.0); PLATELET COUNT, AUTOMATED 235 10^3/uL (150-450); RED BLOOD COUNT 3.79 10^6/uL (4.00-5.40); RED CELL DISTRIBUTION WIDTH 13.3 % (11.5-14.5); WHITE BLOOD COUNT 7.5 10^3/uL (4.0-10.0)
[2017-11-14 06:05] LABS: ANION GAP 5 MEQ/L (8-16); BLOOD UREA NITROGEN 33 MG/DL (7-18); CALCIUM LEVEL 8.2 MG/DL (8.8-10.2); CARBON DIOXIDE LEVEL 32 MEQ/L (21-32); CHLORIDE LEVEL 102 MEQ/L (98-107); CREATININE FOR GFR 0.99 MG/DL (0.55-1.30); GLOMERULAR FILTRATION RATE 58.5 (>39); GLUCOSE, FASTING 93 MG/DL (70-100); POTASSIUM SERUM 3.7 MEQ/L (3.5-5.1); SODIUM LEVEL 139 MEQ/L (136-145)
[2017-11-14] MEDS: NYSTATIN 100,000 UNITS/GM TOPICAL PWD 15 GM TOP ×2 (09:00→20:14)
[2017-11-14] MEDS: MIRALAX *UNIT DOSE* 17GM PACKET PO (09:00)
[2017-11-14] MEDS: SENOKOT S TAB PO ×2 (09:00→20:14)
[2017-11-14] MEDS: HYDROXYCHLOROQUINE 200 MG TAB PO ×2 (09:04→20:14)
[2017-11-14] MEDS: APIXABAN 5 MG TAB (ELIQUIS) PO ×2 (09:04→20:13)
[2017-11-14] MEDS: AMIODARONE 200 MG TAB (PACERONE) PO ×4 (09:04→20:14)
[2017-11-14] MEDS: ESCITALOPRAM OXALATE 10 MG TAB (LEXAPRO) PO (09:04)
[2017-11-14] MEDS: POTASSIUM CHLORIDE 10% LIQ 20 MEQ/15 ML UDC PO ×2 (09:05→20:13)
[2017-11-14 09:20] LABS: CPK CREATINE PHOSPHOKINASE 25 U/L (26-192); TROPONIN I 0.06 NG/ML (< 0.10)
[2017-11-15] MEDS: METOPROLOL TART 50 MG TAB PO ×6 (01:48→17:20)
[2017-11-15 05:03] LABS: HEMOGLOBIN 10.3 g/dl (12.0-16.0); MEAN CORPUSCULAR HEMOGLOBIN 28.2 pg (27.0-33.0); MEAN CORPUSCULAR HGB CONC 32.2 g/dl (32.0-36.5); MEAN CORPUSCULAR VOLUME 87.7 fl (80.0-96.0); PLATELET COUNT, AUTOMATED 217 10^3/uL (150-450); RED BLOOD COUNT 3.65 10^6/uL (4.00-5.40); RED CELL DISTRIBUTION WIDTH 13.3 % (11.5-14.5); WHITE BLOOD COUNT 6.5 10^3/uL (4.0-10.0)
[2017-11-15 05:16] LABS: ANION GAP 5 MEQ/L (8-16); BLOOD UREA NITROGEN 21 MG/DL (7-18); CALCIUM LEVEL 8.2 MG/DL (8.8-10.2); CARBON DIOXIDE LEVEL 28 MEQ/L (21-32); CHLORIDE LEVEL 108 MEQ/L (98-107); CREATININE FOR GFR 0.61 MG/DL (0.55-1.30); GLOMERULAR FILTRATION RATE > 60.0 (>39); GLUCOSE, FASTING 89 MG/DL (70-100); POTASSIUM SERUM 4.2 MEQ/L (3.5-5.1); SODIUM LEVEL 141 MEQ/L (136-145)
[2017-11-15] MEDS: SLF 3 ML SYR IV ×3 (05:50→20:51)
[2017-11-15] MEDS: APIXABAN 5 MG TAB (ELIQUIS) PO ×2 (09:07→20:49)
[2017-11-15] MEDS: ESCITALOPRAM OXALATE 10 MG TAB (LEXAPRO) PO (09:07)
[2017-11-15] MEDS: HYDROXYCHLOROQUINE 200 MG TAB PO ×2 (09:07→20:50)
[2017-11-15] MEDS: SENOKOT S TAB PO ×2 (09:07→20:49)
[2017-11-15] MEDS: AMIODARONE 200 MG TAB (PACERONE) PO ×4 (09:07→20:50)
[2017-11-15] MEDS: MIRALAX *UNIT DOSE* 17GM PACKET PO (09:08)
[2017-11-15] MEDS: POTASSIUM CHLORIDE 10% LIQ 20 MEQ/15 ML UDC PO ×2 (09:08→20:50)
[2017-11-15] MEDS: NYSTATIN 100,000 UNITS/GM TOPICAL PWD 15 GM TOP ×2 (09:08→20:50)
[2017-11-15] MEDS: ONDANSETRON 4MG/2ML VIAL (J2405) IV (18:26)
[2017-11-16] MEDS: METOPROLOL TART 50 MG TAB PO ×5 (00:56→23:48)
[2017-11-16 05:50] LABS: HEMATOCRIT 30.4 % (36.0-47.0); HEMOGLOBIN 9.7 g/dl (12.0-16.0); MEAN CORPUSCULAR HEMOGLOBIN 28.2 pg (27.0-33.0); MEAN CORPUSCULAR HGB CONC 31.9 g/dl (32.0-36.5); MEAN CORPUSCULAR VOLUME 88.4 fl (80.0-96.0); PLATELET COUNT, AUTOMATED 201 10^3/uL (150-450); RED BLOOD COUNT 3.44 10^6/uL (4.00-5.40); RED CELL DISTRIBUTION WIDTH 13.4 % (11.5-14.5); WHITE BLOOD COUNT 7.2 10^3/uL (4.0-10.0)
[2017-11-16] MEDS: SLF 3 ML SYR IV ×3 (05:53→21:19)
[2017-11-16 06:05] LABS: ANION GAP 4 MEQ/L (8-16); BLOOD UREA NITROGEN 19 MG/DL (7-18); CALCIUM LEVEL 8.2 MG/DL (8.8-10.2); CARBON DIOXIDE LEVEL 29 MEQ/L (21-32); CHLORIDE LEVEL 107 MEQ/L (98-107); CREATININE FOR GFR 0.71 MG/DL (0.55-1.30); GLOMERULAR FILTRATION RATE > 60.0 (>39); GLUCOSE, FASTING 97 MG/DL (70-100); POTASSIUM SERUM 4.1 MEQ/L (3.5-5.1); SODIUM LEVEL 140 MEQ/L (136-145)
[2017-11-16] MEDS: ESCITALOPRAM OXALATE 10 MG TAB (LEXAPRO) PO (08:52)
[2017-11-16] MEDS: ACETAMINOPHEN TAB 650MG DOSE (2X325MG) PO (08:52)
[2017-11-16] MEDS: APIXABAN 5 MG TAB (ELIQUIS) PO ×2 (08:52→21:18)
[2017-11-16] MEDS: AMIODARONE 200 MG TAB (PACERONE) PO ×4 (08:53→21:18)
[2017-11-16] MEDS: POTASSIUM CHLORIDE 10% LIQ 20 MEQ/15 ML UDC PO ×2 (08:53→21:18)
[2017-11-16] MEDS: SENOKOT S TAB PO ×2 (08:53→21:17)
[2017-11-16] MEDS: MIRALAX *UNIT DOSE* 17GM PACKET PO (08:53)
[2017-11-16] MEDS: HYDROXYCHLOROQUINE 200 MG TAB PO ×2 (08:53→21:18)
[2017-11-16] MEDS: NYSTATIN 100,000 UNITS/GM TOPICAL PWD 15 GM TOP ×2 (14:19→21:18)
[2017-11-17] MEDS: METOPROLOL TART 50 MG TAB PO ×4 (06:00→23:36)
[2017-11-17 06:12] LABS: HEMATOCRIT 29.8 % (36.0-47.0); HEMOGLOBIN 9.5 g/dl (12.0-16.0); MEAN CORPUSCULAR HEMOGLOBIN 28.1 pg (27.0-33.0); MEAN CORPUSCULAR HGB CONC 31.9 g/dl (32.0-36.5); MEAN CORPUSCULAR VOLUME 88.2 fl (80.0-96.0); PLATELET COUNT, AUTOMATED 205 10^3/uL (150-450); RED BLOOD COUNT 3.38 10^6/uL (4.00-5.40); RED CELL DISTRIBUTION WIDTH 13.4 % (11.5-14.5); WHITE BLOOD COUNT 4.6 10^3/uL (4.0-10.0)
[2017-11-17 06:32] LABS: ANION GAP 4 MEQ/L (8-16); BLOOD UREA NITROGEN 16 MG/DL (7-18); CALCIUM LEVEL 8.2 MG/DL (8.8-10.2); CARBON DIOXIDE LEVEL 30 MEQ/L (21-32); CHLORIDE LEVEL 107 MEQ/L (98-107); CREATININE FOR GFR 0.62 MG/DL (0.55-1.30); GLOMERULAR FILTRATION RATE > 60.0 (>39); GLUCOSE, FASTING 87 MG/DL (70-100); POTASSIUM SERUM 4.1 MEQ/L (3.5-5.1); SODIUM LEVEL 141 MEQ/L (136-145)
[2017-11-17] MEDS: SLF 3 ML SYR IV ×3 (06:38→20:59)
[2017-11-17] MEDS: MIRALAX *UNIT DOSE* 17GM PACKET PO ×2 (09:00→09:45)
[2017-11-17] MEDS: HYDROXYCHLOROQUINE 200 MG TAB PO ×2 (09:45→20:59)
[2017-11-17] MEDS: APIXABAN 5 MG TAB (ELIQUIS) PO ×2 (09:45→20:59)
[2017-11-17] MEDS: AMIODARONE 200 MG TAB (PACERONE) PO ×4 (09:45→20:58)
[2017-11-17] MEDS: POTASSIUM CHLORIDE 10% LIQ 20 MEQ/15 ML UDC PO ×2 (09:45→20:58)
[2017-11-17] MEDS: ESCITALOPRAM OXALATE 10 MG TAB (LEXAPRO) PO (09:45)
[2017-11-17] MEDS: SENOKOT S TAB PO ×2 (09:45→20:59)
[2017-11-17] MEDS: NYSTATIN 100,000 UNITS/GM TOPICAL PWD 15 GM TOP ×2 (09:46→20:59)
[2017-11-17] MEDS: ONDANSETRON 4MG/2ML VIAL (J2405) IV (19:11)
[2017-11-18 05:24] LABS: HEMATOCRIT 30.1 % (36.0-47.0); HEMOGLOBIN 9.6 g/dl (12.0-16.0); MEAN CORPUSCULAR HEMOGLOBIN 28.1 pg (27.0-33.0); MEAN CORPUSCULAR HGB CONC 31.9 g/dl (32.0-36.5); PLATELET COUNT, AUTOMATED 214 10^3/uL (150-450); RED BLOOD COUNT 3.42 10^6/uL (4.00-5.40); RED CELL DISTRIBUTION WIDTH 13.4 % (11.5-14.5); WHITE BLOOD COUNT 4.8 10^3/uL (4.0-10.0)
[2017-11-18 05:38] LABS: ANION GAP 6 MEQ/L (8-16); BLOOD UREA NITROGEN 13 MG/DL (7-18); CALCIUM LEVEL 8.3 MG/DL (8.8-10.2); CARBON DIOXIDE LEVEL 30 MEQ/L (21-32); CHLORIDE LEVEL 105 MEQ/L (98-107); CREATININE FOR GFR 0.72 MG/DL (0.55-1.30); GLOMERULAR FILTRATION RATE > 60.0 (>39); GLUCOSE, FASTING 95 MG/DL (70-100); POTASSIUM SERUM 4.2 MEQ/L (3.5-5.1); SODIUM LEVEL 141 MEQ/L (136-145)
[2017-11-18] MEDS: METOPROLOL TART 50 MG TAB PO ×3 (06:17→17:17)
[2017-11-18] MEDS: SLF 3 ML SYR IV ×3 (06:17→21:47)
[2017-11-18] MEDS: NYSTATIN 100,000 UNITS/GM TOPICAL PWD 15 GM TOP ×2 (08:26→21:46)
[2017-11-18] MEDS: POTASSIUM CHLORIDE 10% LIQ 20 MEQ/15 ML UDC PO ×2 (08:26→21:47)
[2017-11-18] MEDS: SENOKOT S TAB PO ×2 (08:27→21:46)
[2017-11-18] MEDS: ESCITALOPRAM OXALATE 10 MG TAB (LEXAPRO) PO (08:27)
[2017-11-18] MEDS: AMIODARONE 200 MG TAB (PACERONE) PO ×2 (08:27→12:14)
[2017-11-18] MEDS: APIXABAN 5 MG TAB (ELIQUIS) PO ×2 (08:27→21:46)
[2017-11-18] MEDS: HYDROXYCHLOROQUINE 200 MG TAB PO ×2 (08:27→21:46)
[2017-11-18] MEDS: MIRALAX *UNIT DOSE* 17GM PACKET PO (08:27)
[2017-11-19 04:36] LABS: HEMATOCRIT 31.1 % (36.0-47.0); HEMOGLOBIN 9.9 g/dl (12.0-16.0); MEAN CORPUSCULAR HEMOGLOBIN 27.9 pg (27.0-33.0); MEAN CORPUSCULAR HGB CONC 31.8 g/dl (32.0-36.5); MEAN CORPUSCULAR VOLUME 87.6 fl (80.0-96.0); PLATELET COUNT, AUTOMATED 214 10^3/uL (150-450); RED BLOOD COUNT 3.55 10^6/uL (4.00-5.40); RED CELL DISTRIBUTION WIDTH 13.5 % (11.5-14.5)
[2017-11-19 04:58] LABS: ANION GAP 4 MEQ/L (8-16); BLOOD UREA NITROGEN 17 MG/DL (7-18); CALCIUM LEVEL 8.5 MG/DL (8.8-10.2); CARBON DIOXIDE LEVEL 31 MEQ/L (21-32); CHLORIDE LEVEL 106 MEQ/L (98-107); CREATININE FOR GFR 0.83 MG/DL (0.55-1.30); GLOMERULAR FILTRATION RATE > 60.0 (>39); GLUCOSE, FASTING 94 MG/DL (70-100); POTASSIUM SERUM 4.9 MEQ/L (3.5-5.1); SODIUM LEVEL 141 MEQ/L (136-145)
[2017-11-19] MEDS: METOPROLOL TART 50 MG TAB PO ×4 (06:00→17:51)
[2017-11-19] MEDS: SLF 3 ML SYR IV ×3 (06:00→20:41)
[2017-11-19] MEDS: HYDROXYCHLOROQUINE 200 MG TAB PO ×2 (08:50→20:40)
[2017-11-19] MEDS: NYSTATIN 100,000 UNITS/GM TOPICAL PWD 15 GM TOP ×2 (08:50→20:41)
[2017-11-19] MEDS: MIRALAX *UNIT DOSE* 17GM PACKET PO (08:50)
[2017-11-19] MEDS: APIXABAN 5 MG TAB (ELIQUIS) PO ×2 (08:50→20:40)
[2017-11-19] MEDS: SENOKOT S TAB PO ×2 (08:50→21:00)
[2017-11-19] MEDS: ESCITALOPRAM OXALATE 10 MG TAB (LEXAPRO) PO (08:50)
[2017-11-19] MEDS ORDERED: PROPOFOL 200 MG/20 ML VIAL As Ordered (16:30)
[2017-11-19 17:32] LABS: APPEARANCE, URINE MANUAL CLOUDY (CLEAR); COLOR, URINE MANUAL RED (YELLOW)
[2017-11-19 17:33] LABS: GLUCOSE, URINE (UA) MANUAL NEGATIVE (NEGATIVE); PH,URINE MAN 5.5 UNITS (5.0 - 7.0); SPECIFIC GRAVITY,URINE MANUAL 1.015 (1.002-1.035)
[2017-11-19 17:39] LABS: BILIRUBIN, URINE MANUAL NEGATIVE (NEGATIVE); BLOOD URINE MANUAL POSITIVE (NEGATIVE); KETONE, URINE MANUAL NEGATIVE (NEGATIVE); LEUKOCYTE ESTERASE, URINE MAN POSITIVE (NEGATIVE); MICROSCOPIC INDICATED? MAN YES (NO); PROTEIN, URINE MANUAL 2+ mg/dL (NEGATIVE); UROBILINOGEN, URINE MANUAL NORMAL (NORMAL)
[2017-11-19 17:40] LABS: NITRITE, URINE MANUAL NEGATIVE (NEGATIVE)
[2017-11-19] MEDS ORDERED: ONDANSETRON 4MG/2ML VIAL (J2405) IV (17:45)
[2017-11-19] MEDS: LR 1,000 ML IV (17:45)
[2017-11-19 18:01] LABS: RBC, URINE TNTC /hpf (0-3); SQUAMOUS EPITHELIAL CELL URINE MOD AMOUNT /hpf (SMALL AMT); WBC, URINE 40-50 /hpf (0-3)
[2017-11-19 18:02] LABS: BACTERIA, URINE LARGE AMOUNT; HYALINE CAST, URINE NONE SEEN /lpf (0-1); MICROSCOPIC EXAM PERFORMED
[2017-11-20 05:32] LABS: HEMATOCRIT 29.9 % (36.0-47.0); HEMOGLOBIN 9.3 g/dl (12.0-16.0); MEAN CORPUSCULAR HEMOGLOBIN 27.2 pg (27.0-33.0); MEAN CORPUSCULAR HGB CONC 31.1 g/dl (32.0-36.5); MEAN CORPUSCULAR VOLUME 87.4 fl (80.0-96.0); PLATELET COUNT, AUTOMATED 192 10^3/uL (150-450); RED BLOOD COUNT 3.42 10^6/uL (4.00-5.40); RED CELL DISTRIBUTION WIDTH 13.7 % (11.5-14.5); WHITE BLOOD COUNT 4.3 10^3/uL (4.0-10.0)
[2017-11-20 05:55] LABS: ANION GAP 6 MEQ/L (8-16); BLOOD UREA NITROGEN 19 MG/DL (7-18); CALCIUM LEVEL 8.5 MG/DL (8.8-10.2); CARBON DIOXIDE LEVEL 28 MEQ/L (21-32); CHLORIDE LEVEL 106 MEQ/L (98-107); CREATININE FOR GFR 0.81 MG/DL (0.55-1.30); GLOMERULAR FILTRATION RATE > 60.0 (>39); GLUCOSE, FASTING 87 MG/DL (70-100); POTASSIUM SERUM 4.3 MEQ/L (3.5-5.1); SODIUM LEVEL 140 MEQ/L (136-145)
[2017-11-20] MEDS: SLF 3 ML SYR IV ×3 (06:33→20:56)
[2017-11-20] MEDS: MIRALAX *UNIT DOSE* 17GM PACKET PO (08:11)
[2017-11-20] MEDS: SENOKOT S TAB PO ×2 (08:11→20:55)
[2017-11-20] MEDS: NYSTATIN 100,000 UNITS/GM TOPICAL PWD 15 GM TOP ×2 (09:16→20:56)
[2017-11-20] MEDS: HYDROXYCHLOROQUINE 200 MG TAB PO ×2 (09:17→20:55)
[2017-11-20] MEDS: ESCITALOPRAM OXALATE 10 MG TAB (LEXAPRO) PO (09:17)
[2017-11-20] MEDS: METOPROLOL SUCC *XL* 25MG TAB (TopROL *XL*) PO (09:17)
[2017-11-20] MEDS: APIXABAN 5 MG TAB (ELIQUIS) PO ×2 (10:48→20:55)
[2017-11-21] MEDS: SLF 3 ML SYR IV (05:30)
[2017-11-21 05:37] LABS: HEMATOCRIT 30.2 % (36.0-47.0); HEMOGLOBIN 9.5 g/dl (12.0-16.0); MEAN CORPUSCULAR HEMOGLOBIN 27.4 pg (27.0-33.0); MEAN CORPUSCULAR HGB CONC 31.5 g/dl (32.0-36.5); PLATELET COUNT, AUTOMATED 181 10^3/uL (150-450); RED BLOOD COUNT 3.47 10^6/uL (4.00-5.40); RED CELL DISTRIBUTION WIDTH 13.8 % (11.5-14.5); WHITE BLOOD COUNT 3.6 10^3/uL (4.0-10.0)
[2017-11-21 05:57] LABS: ANION GAP 5 MEQ/L (8-16); BLOOD UREA NITROGEN 15 MG/DL (7-18); CALCIUM LEVEL 8.6 MG/DL (8.8-10.2); CARBON DIOXIDE LEVEL 31 MEQ/L (21-32); CHLORIDE LEVEL 104 MEQ/L (98-107); CREATININE FOR GFR 0.74 MG/DL (0.55-1.30); GLOMERULAR FILTRATION RATE > 60.0 (>39); GLUCOSE, FASTING 83 MG/DL (70-100); SODIUM LEVEL 140 MEQ/L (136-145)
[2017-11-21] MEDS: APIXABAN 5 MG TAB (ELIQUIS) PO ×2 (08:34→21:49)
[2017-11-21] MEDS: HYDROXYCHLOROQUINE 200 MG TAB PO ×2 (08:34→21:49)
[2017-11-21] MEDS: SENOKOT S TAB PO ×2 (08:35→21:00)
[2017-11-21] MEDS: MIRALAX *UNIT DOSE* 17GM PACKET PO (08:35)
[2017-11-21] MEDS: ESCITALOPRAM OXALATE 10 MG TAB (LEXAPRO) PO (08:35)
[2017-11-21] MEDS: NYSTATIN 100,000 UNITS/GM TOPICAL PWD 15 GM TOP ×2 (08:36→21:00)
[2017-11-21] MEDS: METOPROLOL SUCC *XL* 25MG TAB (TopROL *XL*) PO (08:37)
[2017-11-21] MEDS: FAMOTIDINE 20 MG TAB PO (12:29)
[2017-11-21] MEDS: CEFTRIAXONE SOD 1 GM in APPROPRIATE DILUENT 1 EA IV (17:50)
[2017-11-21] MEDS ORDERED: NITROFURANTOIN (MACROBID) 100 MG CAP PO (21:00)
[2017-11-22] MEDS: FAMOTIDINE 20 MG TAB PO (09:44)
[2017-11-22] MEDS: HYDROXYCHLOROQUINE 200 MG TAB PO (09:44)
[2017-11-22] MEDS: ESCITALOPRAM OXALATE 10 MG TAB (LEXAPRO) PO (09:46)
[2017-11-22] MEDS: APIXABAN 5 MG TAB (ELIQUIS) PO (09:46)
[2017-11-22] MEDS: SENOKOT S TAB PO (09:46)
[2017-11-22] MEDS: MIRALAX *UNIT DOSE* 17GM PACKET PO (09:47)
[2017-11-22] MEDS: METOPROLOL SUCC *XL* 25MG TAB (TopROL *XL*) PO (09:49)
[2017-11-22] MEDS: NYSTATIN 100,000 UNITS/GM TOPICAL PWD 15 GM TOP (09:49)
== END 2017-11-22 14:17 | DRG 469 ==
LOC: M PCU 11-05 14:45 → M MSPAV 11-10 19:33 → M PCU 11-13 11:33 → M MSPAV 11-21 13:12 → M MS5PR 11-04 21:46 → M ED 09:30 → M ED INP 15:24 → M PCU 17:36
PROC: 0SRS0J9 Replacement of Left Hip Joint, Femoral Surface with Synthetic Substitute, Cemented, Open Approach (ICD-10-PCS; principal; 2017-11-03 14:59)
PROC: 5A2204Z Restoration of Cardiac Rhythm, Single (ICD-10-PCS; 2017-11-03 14:59)
DX: S72.042A Displaced fracture of base of neck of left femur, initial encounter for closed fracture (principal); I50.33 Acute on chronic diastolic (congestive) heart failure; I48.4 Atypical atrial flutter; I48.1 Persistent atrial fibrillation; N39.0 Urinary tract infection, site not specified; I11.0 Hypertensive heart disease with heart failure; I35.0 Nonrheumatic aortic (valve) stenosis; M34.9 Systemic sclerosis, unspecified; I48.0 Paroxysmal atrial fibrillation; B96.20 Unspecified Escherichia coli [E. coli] as the cause of diseases classified elsewhere; F03.90 Unspecified dementia, unspecified severity, without behavioral disturbance, psychotic disturbance, mood disturbance, and anxiety; D64.9 Anemia, unspecified; F32.9 Major depressive disorder, single episode, unspecified; R55 Syncope and collapse; W18.39XA Other fall on same level, initial encounter; I27.81 Cor pulmonale (chronic); R26.89 Other abnormalities of gait and mobility; Y92.000 Kitchen of unspecified non-institutional (private) residence as the place of occurrence of the external cause; Z79.899 Other long term (current) drug therapy; Z95.2 Presence of prosthetic heart valve; Z91.14 Patient's other noncompliance with medication regimen

== ENCOUNTER 2017-12-01 22:48 | Emergency (ER) | payer MEDICARE, OTHER ==
[2017-12-01 23:57] LABS: HEMATOCRIT 31.9 % (36.0-47.0); HEMOGLOBIN 10.3 g/dl (12.0-16.0); MEAN CORPUSCULAR HEMOGLOBIN 28.2 pg (27.0-33.0); MEAN CORPUSCULAR HGB CONC 32.3 g/dl (32.0-36.5); MEAN CORPUSCULAR VOLUME 87.4 fl (80.0-96.0); PLATELET COUNT, AUTOMATED 109 10^3/uL (150-450); RED BLOOD COUNT 3.65 10^6/uL (4.00-5.40); RED CELL DISTRIBUTION WIDTH 14.7 % (11.5-14.5)
[2017-12-02 00:25] LABS: ACETAMINOPHEN LEVEL 5.6 UG/ML (10.0-30.0); ALBUMIN 2.8 GM/DL (3.2-5.2); ALBUMIN/GLOBULIN RATIO 0.85 (1.00-1.93); ALKALINE PHOSPHATASE 73 U/L (45-117); ALT/SGPT 17 U/L (12-78); ANION GAP 8 MEQ/L (8-16); AST/SGOT 11 U/L (7-37); BILIRUBIN,DIRECT 0.1 MG/DL (0.0-0.2); BILIRUBIN,TOTAL 0.3 MG/DL (0.2-1.0); BLOOD UREA NITROGEN 24 MG/DL (7-18); CALCIUM LEVEL 8.2 MG/DL (8.8-10.2); CARBON DIOXIDE LEVEL 28 MEQ/L (21-32); CHLORIDE LEVEL 106 MEQ/L (98-107); CREATININE FOR GFR 0.69 MG/DL (0.55-1.30); ETHYL ALCOHOL (ETHANOL) < 0.003 % (0.000-0.010); GLOMERULAR FILTRATION RATE > 60.0 (>39); GLUCOSE, FASTING 90 MG/DL (70-100); POTASSIUM SERUM 4.2 MEQ/L (3.5-5.1); SALICYLATE LEVEL < 1.7 MG/DL (5.0-30.0); SODIUM LEVEL 142 MEQ/L (136-145); TOTAL PROTEIN 6.1 GM/DL (6.4-8.2)
[2017-12-02 00:43] LABS: AMPHETAMINES LEVEL URINE NEGATIVE (NEGATIVE); BARBITURATES URINE NEGATIVE (NEGATIVE); BENZODIAZEPINES URINE NEGATIVE (NEGATIVE); CANNABINOIDS URINE NEGATIVE (NEGATIVE); COCAINE METABOLITE URINE NEGATIVE (NEGATIVE); METHADONE URINE NEGATIVE (NEGATIVE); OPIATES URINE NEGATIVE (NEGATIVE); PHENCYCLIDINE URINE NEGATIVE (NEGATIVE)
[2017-12-02 02:54] LABS: KETONE, URINE AUTO RFX NEGATIVE (NEGATIVE); LEUKOCYTE ESTERASE UR AUTO RFX NEGATIVE (NEGATIVE); MUCUS, URINE RFX MODERATE (NEGATIVE); NITRITE, URINE AUTO RFX NEGATIVE (NEGATIVE); RBC, URINE AUTO RFX TNTC /HPF (0-3); SPECIFIC GRAVITY UR AUTO RFX 1.028 (1.002-1.035); SQUAM EPITHELIAL CELL UR AURFX 0 /HPF (0-6); WBC, URINE AUTO RFX 36 /HPF (0-3)
== END 2017-12-02 04:04 | disposition home or self-care (01) ==
LOC: M ED 22:48
DX: F41.8 Other specified anxiety disorders (principal); N20.1 Calculus of ureter; I25.10 Atherosclerotic heart disease of native coronary artery without angina pectoris; Z79.01 Long term (current) use of anticoagulants; Z79.899 Other long term (current) drug therapy
CPT/HCPCS: 70450

== ENCOUNTER 2018-01-03 08:53 | Day surgery (SDC) | payer MEDICARE, OTHER ==
[2018-01-03] MEDS ORDERED: LR 1,000 ML IV ×4 (09:15→14:15)
[2018-01-03] MEDS: LR 1,000 ML IV ×2 (10:18)
[2018-01-03] MEDS: AMPICILLIN SOD 2 GM in D5W MINI-BAG PLUS 100 ML IV ×2 (10:42→11:15)
[2018-01-03] MEDS ORDERED: ONDANSETRON 4MG/2ML VIAL (J2405) As Ordered ×4 (11:41→15:24)
[2018-01-03] MEDS ORDERED: LIDOCAINE 2% INJ 100 MG/5 ML SDV (FOR ANES.) As Ordered ×2 (11:41)
[2018-01-03] MEDS ORDERED: PROPOFOL 200 MG/20 ML VIAL As Ordered ×2 (11:41)
[2018-01-03] MEDS ORDERED: MIDAZOLAM INJ 2 MG/2 ML VIAL (J2250) As Ordered ×2 (11:42)
[2018-01-03] MEDS ORDERED: fentaNYL 100 MCG/2 ML INJECTION (J3010) As Ordered ×2 (11:42)
[2018-01-03] MEDS: GENTAMICIN 80 MG in APPROPRIATE DILUENT 1 EA IV (11:55)
[2018-01-03] MEDS: AMPICILLIN 1 GM VIAL As Ordered ×2 (12:15)
[2018-01-03] MEDS: CONRAY-60 60% 50ML VIAL (Q9961) As Ordered ×2 (12:27)
[2018-01-03] MEDS ORDERED: MEPERIDINE INJ 25 MG/ML VIAL (J2175) IV ×2 (14:15)
[2018-01-03] MEDS ORDERED: oxyBUTYnin 5 MG TAB PO ×2 (14:15)
[2018-01-03] MEDS ORDERED: PERCOCET 5MG/325MG TAB PO ×4 (14:15)
[2018-01-03] MEDS ORDERED: ACETAMINOPHEN TAB 650MG DOSE (2X325MG) PO ×2 (14:15)
[2018-01-03] MEDS ORDERED: fentaNYL 100 MCG/2 ML INJECTION (J3010) IV ×2 (14:15)
[2018-01-03] MEDS: ONDANSETRON 4MG/2ML VIAL (J2405) IV ×2 (15:29)
[2018-01-03] MEDS ORDERED: METOCLOPRAMIDE INJ 10MG/2ML VIAL (J2765) As Ordered ×2 (15:39)
[2018-01-03] MEDS: METOCLOPRAMIDE INJ 10MG/2ML VIAL (J2765) IV ×2 (15:50)
[2018-01-03] MEDS: PROMETHAZINE INJ 25 MG/ML VIAL (J2550) IV ×2 (16:45)
== END 2018-01-03 20:00 | disposition home or self-care (01) ==
LOC: M SDC 08:53
DX: N20.0 Calculus of kidney (principal); N13.5 Crossing vessel and stricture of ureter without hydronephrosis; I10 Essential (primary) hypertension; K21.9 Gastro-esophageal reflux disease without esophagitis; I48.91 Unspecified atrial fibrillation; D50.9 Iron deficiency anemia, unspecified; Z79.899 Other long term (current) drug therapy
CPT/HCPCS: 52356

== ENCOUNTER → 2018-01-08 | Outpatient (REF) | payer MEDICARE, OTHER ==
[2018-01-08 14:10] LABS: APPEARANCE, URINE MANUAL TURBID (CLEAR); COLOR, URINE MANUAL RED (YELLOW)
[2018-01-08 14:13] LABS: BILIRUBIN, URINE MANUAL NEGATIVE (NEGATIVE); BLOOD URINE MANUAL POSITIVE (NEGATIVE); GLUCOSE, URINE (UA) MANUAL NEGATIVE (NEGATIVE); KETONE, URINE MANUAL NEGATIVE (NEGATIVE); LEUKOCYTE ESTERASE, URINE MAN POSITIVE (NEGATIVE); MICROSCOPIC INDICATED? MAN YES (NO); NITRITE, URINE MANUAL NEGATIVE (NEGATIVE); PROTEIN, URINE MANUAL 1+ mg/dL (NEGATIVE); UROBILINOGEN, URINE MANUAL NORMAL (NORMAL)
[2018-01-08 14:14] LABS: BACTERIA, URINE MOD AMOUNT; HYALINE CAST, URINE 0-1 /lpf (0-1); MICROSCOPIC EXAM PERFORMED; RBC, URINE TNTC /hpf (0-3); SQUAMOUS EPITHELIAL CELL URINE SMALL AMOUNT /hpf (SMALL AMT); WBC, URINE 15-20 /hpf (0-3)
== END ==
LOC: SKLAB2 14:02 → SKLAB3 14:02
DX: N39.0 Urinary tract infection, site not specified (principal)
CPT/HCPCS: 81000

== ENCOUNTER → 2018-01-27 | Outpatient (REF) | payer MEDICARE, OTHER ==
[2018-01-27 09:45] LABS: ANION GAP 5 MEQ/L (8-16); BLOOD UREA NITROGEN 24 MG/DL (7-18); CALCIUM LEVEL 9.2 MG/DL (8.8-10.2); CARBON DIOXIDE LEVEL 31 MEQ/L (21-32); CHLORIDE LEVEL 104 MEQ/L (98-107); CREATININE FOR GFR 1.11 MG/DL (0.55-1.30); GLOMERULAR FILTRATION RATE 51.3 (>39); GLUCOSE, FASTING 101 MG/DL (70-100); POTASSIUM SERUM 4.2 MEQ/L (3.5-5.1); SODIUM LEVEL 140 MEQ/L (136-145)
== END ==
LOC: SKLAB3 12:44
DX: R94.6 Abnormal results of thyroid function studies (principal); I48.91 Unspecified atrial fibrillation; Z79.899 Other long term (current) drug therapy
CPT/HCPCS: 84443

== ENCOUNTER → 2018-02-06 | Outpatient (REF) | payer MEDICARE, OTHER ==
[2018-02-06 13:31] LABS: BASO % 0.7 % (0.0-1.0); EOS # 0.1 10^3/uL (0.0-0.50); EOS % 1.3 % (0.0-3.0); HEMATOCRIT 39.2 % (36.0-47.0); HEMOGLOBIN 12.5 g/dl (12.0-15.5); IMMATURE GRANULOCYTE % 0.3 % (0-3.0); LYMPH # 1.8 10^3/uL (1.5-4.5); LYMPH % 28.9 % (24.0-44.0); MEAN CORPUSCULAR HEMOGLOBIN 27.8 pg (27.0-33.0); MEAN CORPUSCULAR HGB CONC 31.9 g/dl (32.0-36.5); MEAN CORPUSCULAR VOLUME 87.1 fl (80.0-96.0); MONO # 0.7 10^3/uL (0.0-0.8); MONO % 11.8 % (0.0-5.0); NEUTROPHILS # 3.5 10^3/uL (1.8-7.7); PLATELET COUNT, AUTOMATED 127 10^3/uL (150-450); RED CELL DISTRIBUTION WIDTH 17.4 % (11.5-14.5); WHITE BLOOD COUNT 6.1 10^3/uL (4.0-10.0)
[2018-02-06 14:24] LABS: ALBUMIN 3.7 GM/DL (3.2-5.2); ALKALINE PHOSPHATASE 58 U/L (45-117); ALT/SGPT 19 U/L (12-78); ANION GAP 8 MEQ/L (8-16); AST/SGOT 17 U/L (7-37); BILIRUBIN,TOTAL 0.4 MG/DL (0.2-1.0); BLOOD UREA NITROGEN 30 MG/DL (7-18); CALCIUM LEVEL 8.8 MG/DL (8.8-10.2); CARBON DIOXIDE LEVEL 29 MEQ/L (21-32); CHLORIDE LEVEL 102 MEQ/L (98-107); CREATININE FOR GFR 1.37 MG/DL (0.55-1.30); GLOMERULAR FILTRATION RATE 40.2 (>39); GLUCOSE, FASTING 120 MG/DL (70-100); NT-PRO BNP 992 PG/ML (<125); POTASSIUM SERUM 4.5 MEQ/L (3.5-5.1); SODIUM LEVEL 139 MEQ/L (136-145); TOTAL PROTEIN 7.8 GM/DL (6.4-8.2)
== END ==
LOC: SKLAB3 11:54
DX: I48.91 Unspecified atrial fibrillation (principal); I50.9 Heart failure, unspecified
CPT/HCPCS: 84443

== ENCOUNTER 2018-08-29 12:05 | Inpatient (IN) | payer MEDICARE, OTHER ==
[2018-08-29 13:29] LABS: BASO % 0.6 % (0.0-1.0); HEMATOCRIT 40.2 % (36.0-47.0); HEMOGLOBIN 12.8 g/dl (12.0-15.5); IMMATURE GRANULOCYTE % 0.6 % (0-3.0); LYMPH # 1.2 10^3/uL (1.5-4.5); LYMPH % 25.4 % (24.0-44.0); MEAN CORPUSCULAR HEMOGLOBIN 30.1 pg (27.0-33.0); MEAN CORPUSCULAR HGB CONC 31.8 g/dl (32.0-36.5); MEAN CORPUSCULAR VOLUME 94.6 fl (80.0-96.0); MONO # 0.7 10^3/uL (0.0-0.8); MONO % 14.5 % (0.0-5.0); NEUTROPHILS # 2.9 10^3/uL (1.8-7.7); NEUTROPHILS % 58.9 % (36.0-66.0); PLATELET COUNT, AUTOMATED 137 10^3/uL (150-450); RED BLOOD COUNT 4.25 10^6/uL (4.00-5.40); RED CELL DISTRIBUTION WIDTH 12.5 % (11.5-14.5); WHITE BLOOD COUNT 4.9 10^3/uL (4.0-10.0)
[2018-08-29 13:59] LABS: ANION GAP 6 MEQ/L (8-16); BLOOD UREA NITROGEN 52 MG/DL (7-18); CALCIUM LEVEL 8.8 MG/DL (8.8-10.2); CARBON DIOXIDE LEVEL 28 MEQ/L (21-32); CHLORIDE LEVEL 104 MEQ/L (98-107); CREATININE FOR GFR 2.83 MG/DL (0.55-1.30); GLOMERULAR FILTRATION RATE 17.4 (>39); GLUCOSE, FASTING 90 MG/DL (70-100); POTASSIUM SERUM 4.7 MEQ/L (3.5-5.1); SODIUM LEVEL 138 MEQ/L (136-145)
[2018-08-29 15:12] LABS: AMORPHOUS SEDIMENT RFX SMALL (NEGATIVE); KETONE, URINE AUTO RFX NEGATIVE (NEGATIVE); LEUKOCYTE ESTERASE UR AUTO RFX NEGATIVE (NEGATIVE); NITRITE, URINE AUTO RFX NEGATIVE (NEGATIVE); RBC, URINE AUTO RFX 0 /HPF (0-3); SPECIFIC GRAVITY UR AUTO RFX 1.009 (1.002-1.035); SQUAM EPITHELIAL CELL UR AURFX 0 /HPF (0-6); WBC, URINE AUTO RFX 1 /HPF (0-3)
[2018-08-29] MEDS ORDERED: ONDANSETRON 4MG/2ML VIAL (J2405) IV (15:45)
[2018-08-29] MEDS: ACETAMINOPHEN TAB 650MG DOSE (2X325MG) PO (18:48)
[2018-08-29] MEDS: NS 1,000 ML IV (20:20)
[2018-08-29] MEDS: FAMOTIDINE 20 MG TAB PO (20:20)
[2018-08-29] MEDS: HYDROXYCHLOROQUINE 200 MG TAB PO (20:21)
[2018-08-29] MEDS ORDERED: APIXABAN 5 MG TAB (ELIQUIS) PO (21:00)
[2018-08-30] MEDS: NS 1,000 ML IV (06:19)
[2018-08-30 06:20] LABS: HEMATOCRIT 37.3 % (36.0-47.0); HEMOGLOBIN 11.8 g/dl (12.0-15.5); MEAN CORPUSCULAR HEMOGLOBIN 30.1 pg (27.0-33.0); MEAN CORPUSCULAR HGB CONC 31.6 g/dl (32.0-36.5); MEAN CORPUSCULAR VOLUME 95.2 fl (80.0-96.0); PLATELET COUNT, AUTOMATED 133 10^3/uL (150-450); RED BLOOD COUNT 3.92 10^6/uL (4.00-5.40); RED CELL DISTRIBUTION WIDTH 12.7 % (11.5-14.5); WHITE BLOOD COUNT 5.9 10^3/uL (4.0-10.0)
[2018-08-30 06:47] LABS: ALBUMIN 3.2 GM/DL (3.2-5.2); ALKALINE PHOSPHATASE 62 U/L (45-117); ALT/SGPT 22 U/L (12-78); ANION GAP 5 MEQ/L (8-16); AST/SGOT 19 U/L (7-37); BILIRUBIN,TOTAL 0.4 MG/DL (0.2-1.0); BLOOD UREA NITROGEN 44 MG/DL (7-18); CALCIUM LEVEL 8.2 MG/DL (8.8-10.2); CARBON DIOXIDE LEVEL 30 MEQ/L (21-32); CHLORIDE LEVEL 108 MEQ/L (98-107); CREATININE FOR GFR 2.52 MG/DL (0.55-1.30); GLOMERULAR FILTRATION RATE 19.9 (>39); GLUCOSE, FASTING 93 MG/DL (70-100); MAGNESIUM LEVEL 2.5 MG/DL (1.8-2.4); POTASSIUM SERUM 4.3 MEQ/L (3.5-5.1); SODIUM LEVEL 143 MEQ/L (136-145); TOTAL PROTEIN 7.2 GM/DL (6.4-8.2)
[2018-08-30] MEDS: BISOPROLOL FUM 2.5 MG PER 1/2TAB PO (09:00)
[2018-08-30] MEDS: DONEPEZIL 5 MG TAB PO (09:10)
[2018-08-30] MEDS: HYDROXYCHLOROQUINE 200 MG TAB PO ×2 (09:11→20:31)
[2018-08-30] MEDS: AMIODARONE 200 MG TAB (PACERONE) PO (09:11)
[2018-08-30] MEDS: KCL 20MEQ IN 0.45NS 1000ML 1,000 ML IV ×2 (11:26→16:10)
[2018-08-30] MEDS: QUEtiapine FUMARATE 50 MG TAB PO ×2 (11:26→20:31)
[2018-08-30] MEDS ORDERED: ceFAZolin 2 GM/D5W 50 ML IV BAG (J0690 PER 500MG) As Ordered (12:27)
[2018-08-30] MEDS ORDERED: DESFLURANE 240 ML INHALANT As Ordered (12:52)
[2018-08-30] MEDS ORDERED: MIDAZOLAM INJ 2 MG/2 ML VIAL (J2250) As Ordered (12:52)
[2018-08-30] MEDS ORDERED: LIDOCAINE 2% INJ 100 MG/5 ML SDV (FOR ANES.) As Ordered (12:52)
[2018-08-30] MEDS ORDERED: PROPOFOL 200 MG/20 ML VIAL As Ordered (12:52)
[2018-08-30] MEDS ORDERED: METOCLOPRAMIDE INJ 10MG/2ML VIAL (J2765) As Ordered (12:52)
[2018-08-30] MEDS ORDERED: ONDANSETRON 4MG/2ML VIAL (J2405) As Ordered (12:52)
[2018-08-30] MEDS ORDERED: fentaNYL 100 MCG/2 ML INJECTION (J3010) As Ordered (12:52)
[2018-08-30] MEDS ORDERED: dexameTHASONE 4 MG/ML 1ML VIAL (J1100) As Ordered (12:52)
[2018-08-30] MEDS: LIDOCAINE 2% 5ML JELLY UROJET As Ordered (13:05)
[2018-08-30] MEDS: LIDOCAINE 1% MDV 20ML VIAL As Ordered (13:05)
[2018-08-30] MEDS ORDERED: ePHEDrine SULFATE 25 MG/5 ML(5MG/ML) SYRINGE As Ordered (13:11)
[2018-08-30] MEDS: CONRAY-60 60% 50ML VIAL (Q9961) As Ordered (13:11)
[2018-08-30] MEDS ORDERED: NORCO, ANEXSIA 5/325MG TABLET (HYDROcodone/ACETAMINOPHEN) PO (14:00)
[2018-08-30] MEDS: LR 1,000 ML IV (14:00)
[2018-08-30] MEDS ORDERED: fentaNYL 100 MCG/2 ML INJECTION (J3010) IV (14:00)
[2018-08-30] MEDS ORDERED: ONDANSETRON 4MG/2ML VIAL (J2405) IV (14:00)
[2018-08-30] MEDS: HALOPERIDOL 5 MG/ML VIAL (J1630) IM (17:35)
[2018-08-30] MEDS: FAMOTIDINE 20 MG TAB PO (20:31)
[2018-08-31] MEDS: KCL 20MEQ IN 0.45NS 1000ML 1,000 ML IV ×2 (06:01→08:02)
[2018-08-31 06:36] LABS: HEMATOCRIT 36.9 % (36.0-47.0); HEMOGLOBIN 11.5 g/dl (12.0-15.5); MEAN CORPUSCULAR HEMOGLOBIN 29.6 pg (27.0-33.0); MEAN CORPUSCULAR HGB CONC 31.2 g/dl (32.0-36.5); MEAN CORPUSCULAR VOLUME 95.1 fl (80.0-96.0); PLATELET COUNT, AUTOMATED 114 10^3/uL (150-450); RED BLOOD COUNT 3.88 10^6/uL (4.00-5.40); RED CELL DISTRIBUTION WIDTH 12.3 % (11.5-14.5); WHITE BLOOD COUNT 4.9 10^3/uL (4.0-10.0)
[2018-08-31 06:59] LABS: ALBUMIN 2.8 GM/DL (3.2-5.2); ALKALINE PHOSPHATASE 64 U/L (45-117); ALT/SGPT 18 U/L (12-78); ANION GAP 7 MEQ/L (8-16); AST/SGOT 22 U/L (7-37); BILIRUBIN,TOTAL 0.4 MG/DL (0.2-1.0); BLOOD UREA NITROGEN 30 MG/DL (7-18); CALCIUM LEVEL 8.2 MG/DL (8.8-10.2); CARBON DIOXIDE LEVEL 25 MEQ/L (21-32); CHLORIDE LEVEL 111 MEQ/L (98-107); CREATININE FOR GFR 1.86 MG/DL (0.55-1.30); GLOMERULAR FILTRATION RATE 28.2 (>39); GLUCOSE, FASTING 100 MG/DL (70-100); MAGNESIUM LEVEL 2.4 MG/DL (1.8-2.4); POTASSIUM SERUM 5.3 MEQ/L (3.5-5.1); SODIUM LEVEL 143 MEQ/L (136-145); TOTAL PROTEIN 6.8 GM/DL (6.4-8.2)
[2018-08-31] MEDS: ACETAMINOPHEN TAB 650MG DOSE (2X325MG) PO ×2 (08:01→21:10)
[2018-08-31] MEDS: BISOPROLOL FUM 2.5 MG PER 1/2TAB PO (08:02)
[2018-08-31] MEDS: HYDROXYCHLOROQUINE 200 MG TAB PO ×2 (08:02→21:10)
[2018-08-31] MEDS: AMIODARONE 200 MG TAB (PACERONE) PO (08:02)
[2018-08-31] MEDS: DONEPEZIL 5 MG TAB PO (08:02)
[2018-08-31] MEDS: QUEtiapine FUMARATE 50 MG TAB PO ×2 (08:02→21:10)
[2018-08-31] MEDS ORDERED: NS 0.45% 1,000 ML IV (11:00)
[2018-08-31] MEDS: APIXABAN 5 MG TAB (ELIQUIS) PO ×2 (13:07→21:10)
[2018-08-31] MEDS: FAMOTIDINE 20 MG TAB PO (21:10)
[2018-09-01 06:14] LABS: HEMATOCRIT 36.2 % (36.0-47.0); HEMOGLOBIN 11.4 g/dl (12.0-15.5); MEAN CORPUSCULAR HGB CONC 31.5 g/dl (32.0-36.5); MEAN CORPUSCULAR VOLUME 95.3 fl (80.0-96.0); PLATELET COUNT, AUTOMATED 115 10^3/uL (150-450); RED CELL DISTRIBUTION WIDTH 12.9 % (11.5-14.5); WHITE BLOOD COUNT 9.1 10^3/uL (4.0-10.0)
[2018-09-01 06:42] LABS: ALBUMIN 2.9 GM/DL (3.2-5.2); ALBUMIN/GLOBULIN RATIO 0.76 (1.00-1.93); ALKALINE PHOSPHATASE 59 U/L (45-117); ALT/SGPT 18 U/L (12-78); ANION GAP 6 MEQ/L (8-16); AST/SGOT 26 U/L (7-37); BILIRUBIN,TOTAL 0.2 MG/DL (0.2-1.0); BLOOD UREA NITROGEN 40 MG/DL (7-18); CALCIUM LEVEL 8.1 MG/DL (8.8-10.2); CARBON DIOXIDE LEVEL 24 MEQ/L (21-32); CHLORIDE LEVEL 111 MEQ/L (98-107); CREATININE FOR GFR 1.97 MG/DL (0.55-1.30); GLOMERULAR FILTRATION RATE 26.4 (>39); GLUCOSE, FASTING 100 MG/DL (70-100); MAGNESIUM LEVEL 2.6 MG/DL (1.8-2.4); POTASSIUM SERUM 5.5 MEQ/L (3.5-5.1); SODIUM LEVEL 141 MEQ/L (136-145); TOTAL PROTEIN 6.7 GM/DL (6.4-8.2)
[2018-09-01] MEDS: ACETAMINOPHEN TAB 650MG DOSE (2X325MG) PO ×2 (08:58→21:18)
[2018-09-01] MEDS: QUEtiapine FUMARATE 50 MG TAB PO ×2 (08:59→21:18)
[2018-09-01] MEDS: AMIODARONE 200 MG TAB (PACERONE) PO (08:59)
[2018-09-01] MEDS: HYDROXYCHLOROQUINE 200 MG TAB PO ×2 (08:59→21:18)
[2018-09-01] MEDS: BISOPROLOL FUM 2.5 MG PER 1/2TAB PO (08:59)
[2018-09-01] MEDS: APIXABAN 5 MG TAB (ELIQUIS) PO ×2 (08:59→21:18)
[2018-09-01] MEDS: DONEPEZIL 5 MG TAB PO (09:00)
[2018-09-01 10:06] LABS: POTASSIUM SERUM 4.7 MEQ/L (3.5-5.1)
[2018-09-01] MEDS: FAMOTIDINE 20 MG TAB PO (21:18)
[2018-09-02 06:49] LABS: HEMATOCRIT 35.7 % (36.0-47.0); MEAN CORPUSCULAR HEMOGLOBIN 29.7 pg (27.0-33.0); MEAN CORPUSCULAR HGB CONC 30.8 g/dl (32.0-36.5); MEAN CORPUSCULAR VOLUME 96.5 fl (80.0-96.0); RED CELL DISTRIBUTION WIDTH 12.7 % (11.5-14.5); WHITE BLOOD COUNT 5.9 10^3/uL (4.0-10.0)
[2018-09-02 07:17] LABS: ALBUMIN 2.5 GM/DL (3.2-5.2); ALBUMIN/GLOBULIN RATIO 0.76 (1.00-1.93); ALKALINE PHOSPHATASE 54 U/L (45-117); ALT/SGPT 13 U/L (12-78); ANION GAP 5 MEQ/L (8-16); AST/SGOT 20 U/L (7-37); BILIRUBIN,TOTAL 0.4 MG/DL (0.2-1.0); BLOOD UREA NITROGEN 35 MG/DL (7-18); CALCIUM LEVEL 7.8 MG/DL (8.8-10.2); CARBON DIOXIDE LEVEL 26 MEQ/L (21-32); CHLORIDE LEVEL 110 MEQ/L (98-107); CREATININE FOR GFR 1.66 MG/DL (0.55-1.30); GLOMERULAR FILTRATION RATE 32.1 (>39); GLUCOSE, FASTING 83 MG/DL (70-100); MAGNESIUM LEVEL 2.2 MG/DL (1.8-2.4); POTASSIUM SERUM 4.7 MEQ/L (3.5-5.1); SODIUM LEVEL 141 MEQ/L (136-145); TOTAL PROTEIN 5.8 GM/DL (6.4-8.2)
[2018-09-02 07:38] LABS: PLATELET COUNT, AUTOMATED 80 10^3/uL (150-450)
[2018-09-02 07:39] LABS: IMMATURE PLATELET FRACTION % 3.1 % (0.0-9.6); PLATELET F 80
[2018-09-02] MEDS: BISOPROLOL FUM 2.5 MG PER 1/2TAB PO (09:00)
[2018-09-02] MEDS: HYDROXYCHLOROQUINE 200 MG TAB PO ×2 (09:16→20:10)
[2018-09-02] MEDS: APIXABAN 5 MG TAB (ELIQUIS) PO ×2 (09:16→20:10)
[2018-09-02] MEDS: QUEtiapine FUMARATE 50 MG TAB PO ×2 (09:16→20:10)
[2018-09-02] MEDS: AMIODARONE 200 MG TAB (PACERONE) PO (09:16)
[2018-09-02] MEDS: DONEPEZIL 5 MG TAB PO (09:16)
[2018-09-02] MEDS: ACETAMINOPHEN TAB 650MG DOSE (2X325MG) PO (11:03)
[2018-09-02] MEDS: FAMOTIDINE 20 MG TAB PO (20:10)
[2018-09-03 06:22] LABS: HEMATOCRIT 39.6 % (36.0-47.0); HEMOGLOBIN 12.1 g/dl (12.0-15.5); MEAN CORPUSCULAR HEMOGLOBIN 29.3 pg (27.0-33.0); MEAN CORPUSCULAR HGB CONC 30.6 g/dl (32.0-36.5); MEAN CORPUSCULAR VOLUME 95.9 fl (80.0-96.0); RED BLOOD COUNT 4.13 10^6/uL (4.00-5.40); RED CELL DISTRIBUTION WIDTH 12.7 % (11.5-14.5); WHITE BLOOD COUNT 5.3 10^3/uL (4.0-10.0)
[2018-09-03 06:25] LABS: PLATELET COUNT, AUTOMATED 77 10^3/uL (150-450)
[2018-09-03 06:50] LABS: ALBUMIN 2.8 GM/DL (3.2-5.2); ALBUMIN/GLOBULIN RATIO 0.78 (1.00-1.93); ALKALINE PHOSPHATASE 62 U/L (45-117); ALT/SGPT 16 U/L (12-78); ANION GAP 6 MEQ/L (8-16); AST/SGOT 20 U/L (7-37); BILIRUBIN,TOTAL 0.4 MG/DL (0.2-1.0); BLOOD UREA NITROGEN 28 MG/DL (7-18); CALCIUM LEVEL 8.1 MG/DL (8.8-10.2); CARBON DIOXIDE LEVEL 28 MEQ/L (21-32); CHLORIDE LEVEL 110 MEQ/L (98-107); CREATININE FOR GFR 1.59 MG/DL (0.55-1.30); GLOMERULAR FILTRATION RATE 33.8 (>39); GLUCOSE, FASTING 82 MG/DL (70-100); MAGNESIUM LEVEL 2.4 MG/DL (1.8-2.4); POTASSIUM SERUM 4.5 MEQ/L (3.5-5.1); SODIUM LEVEL 144 MEQ/L (136-145); TOTAL PROTEIN 6.4 GM/DL (6.4-8.2)
[2018-09-03] MEDS: HYDROXYCHLOROQUINE 200 MG TAB PO ×2 (09:24→23:10)
[2018-09-03] MEDS: BISOPROLOL FUM 2.5 MG PER 1/2TAB PO (09:24)
[2018-09-03] MEDS: QUEtiapine FUMARATE 50 MG TAB PO ×2 (09:25→23:10)
[2018-09-03] MEDS: DONEPEZIL 5 MG TAB PO (09:25)
[2018-09-03] MEDS: ACETAMINOPHEN TAB 650MG DOSE (2X325MG) PO ×2 (09:25→23:09)
[2018-09-03] MEDS: APIXABAN 5 MG TAB (ELIQUIS) PO ×2 (09:25→23:10)
[2018-09-03] MEDS: AMIODARONE 200 MG TAB (PACERONE) PO (09:25)
[2018-09-03] MEDS: FAMOTIDINE 20 MG TAB PO (23:10)
[2018-09-04 06:24] LABS: HEMOGLOBIN 11.3 g/dl (12.0-15.5); MEAN CORPUSCULAR HEMOGLOBIN 29.7 pg (27.0-33.0); MEAN CORPUSCULAR HGB CONC 30.5 g/dl (32.0-36.5); MEAN CORPUSCULAR VOLUME 97.4 fl (80.0-96.0); RED CELL DISTRIBUTION WIDTH 12.9 % (11.5-14.5); WHITE BLOOD COUNT 6.8 10^3/uL (4.0-10.0)
[2018-09-04 06:31] LABS: IMMATURE PLATELET FRACTION % 2.7 % (0.0-9.6); PLATELET COUNT, AUTOMATED 49 10^3/uL (150-450); PLATELET F 1.1
[2018-09-04 06:47] LABS: ALBUMIN 2.4 GM/DL (3.2-5.2); ALBUMIN/GLOBULIN RATIO 0.65 (1.00-1.93); ALKALINE PHOSPHATASE 54 U/L (45-117); ALT/SGPT 14 U/L (12-78); ANION GAP 5 MEQ/L (8-16); AST/SGOT 23 U/L (7-37); BILIRUBIN,TOTAL 0.3 MG/DL (0.2-1.0); BLOOD UREA NITROGEN 34 MG/DL (7-18); CARBON DIOXIDE LEVEL 27 MEQ/L (21-32); CHLORIDE LEVEL 112 MEQ/L (98-107); CREATININE FOR GFR 1.67 MG/DL (0.55-1.30); GLOMERULAR FILTRATION RATE 31.9 (>39); GLUCOSE, FASTING 82 MG/DL (70-100); MAGNESIUM LEVEL 2.3 MG/DL (1.8-2.4); POTASSIUM SERUM 4.8 MEQ/L (3.5-5.1); SODIUM LEVEL 144 MEQ/L (136-145); TOTAL PROTEIN 6.1 GM/DL (6.4-8.2)
[2018-09-04] MEDS: BISOPROLOL FUMARATE 1.25MG PER 1/4 TABLET PO (09:00)
[2018-09-04] MEDS: QUEtiapine FUMARATE 50 MG TAB PO ×2 (09:09→21:32)
[2018-09-04] MEDS: APIXABAN 5 MG TAB (ELIQUIS) PO ×2 (09:09→21:31)
[2018-09-04] MEDS: HYDROXYCHLOROQUINE 200 MG TAB PO ×2 (09:09→21:32)
[2018-09-04] MEDS: DONEPEZIL 5 MG TAB PO (09:10)
[2018-09-04] MEDS: AMIODARONE 200 MG TAB (PACERONE) PO (10:54)
[2018-09-04 11:53] LABS: BEDSIDE GLUCOSE 85 MG/DL (83-110)
[2018-09-04 16:53] LABS: BEDSIDE GLUCOSE 114 MG/DL (83-110)
[2018-09-04] MEDS: FAMOTIDINE 20 MG TAB PO (21:32)
[2018-09-04] MEDS: ACETAMINOPHEN TAB 650MG DOSE (2X325MG) PO (23:56)
[2018-09-05] MEDS: HYDROXYCHLOROQUINE 200 MG TAB PO ×3 (00:30→20:37)
[2018-09-05] MEDS: FAMOTIDINE 20 MG TAB PO ×2 (00:31→20:37)
[2018-09-05] MEDS: APIXABAN 5 MG TAB (ELIQUIS) PO ×3 (00:31→20:37)
[2018-09-05] MEDS: QUEtiapine FUMARATE 50 MG TAB PO ×3 (00:32→20:37)
[2018-09-05 06:02] LABS: HEMATOCRIT 35.2 % (36.0-47.0); HEMOGLOBIN 10.8 g/dl (12.0-15.5); MEAN CORPUSCULAR HEMOGLOBIN 29.3 pg (27.0-33.0); MEAN CORPUSCULAR HGB CONC 30.7 g/dl (32.0-36.5); MEAN CORPUSCULAR VOLUME 95.7 fl (80.0-96.0); RED BLOOD COUNT 3.68 10^6/uL (4.00-5.40); RED CELL DISTRIBUTION WIDTH 12.9 % (11.5-14.5); WHITE BLOOD COUNT 5.3 10^3/uL (4.0-10.0)
[2018-09-05 06:06] LABS: PLATELET COUNT, AUTOMATED 72 10^3/uL (150-450)
[2018-09-05 06:22] LABS: ALBUMIN 2.4 GM/DL (3.2-5.2); ALBUMIN/GLOBULIN RATIO 0.67 (1.00-1.93); ALKALINE PHOSPHATASE 57 U/L (45-117); ALT/SGPT 14 U/L (12-78); ANION GAP 5 MEQ/L (8-16); AST/SGOT 21 U/L (7-37); BILIRUBIN,TOTAL 0.3 MG/DL (0.2-1.0); BLOOD UREA NITROGEN 31 MG/DL (7-18); CARBON DIOXIDE LEVEL 27 MEQ/L (21-32); CHLORIDE LEVEL 113 MEQ/L (98-107); CREATININE FOR GFR 1.59 MG/DL (0.55-1.30); GLOMERULAR FILTRATION RATE 33.8 (>39); GLUCOSE, FASTING 87 MG/DL (70-100); MAGNESIUM LEVEL 2.2 MG/DL (1.8-2.4); POTASSIUM SERUM 4.8 MEQ/L (3.5-5.1); SODIUM LEVEL 145 MEQ/L (136-145)
[2018-09-05] MEDS: DONEPEZIL 5 MG TAB PO (08:35)
[2018-09-05] MEDS: BISOPROLOL FUMARATE 1.25MG PER 1/4 TABLET PO (08:35)
[2018-09-05] MEDS: AMIODARONE 200 MG TAB (PACERONE) PO (08:35)
[2018-09-06] MEDS: ACETAMINOPHEN TAB 650MG DOSE (2X325MG) PO (02:56)
[2018-09-06] MEDS: DONEPEZIL 5 MG TAB PO (09:00)
[2018-09-06] MEDS: BISOPROLOL FUMARATE 1.25MG PER 1/4 TABLET PO (09:33)
[2018-09-06] MEDS: AMIODARONE 200 MG TAB (PACERONE) PO (09:33)
[2018-09-06] MEDS: APIXABAN 5 MG TAB (ELIQUIS) PO ×2 (09:33→20:56)
[2018-09-06] MEDS: HYDROXYCHLOROQUINE 200 MG TAB PO ×2 (09:33→20:56)
[2018-09-06] MEDS: QUEtiapine FUMARATE 50 MG TAB PO ×2 (09:33→20:56)
[2018-09-06] MEDS: HALOPERIDOL 5 MG TAB PO (13:32)
[2018-09-06] MEDS: FAMOTIDINE 20 MG TAB PO (20:56)
[2018-09-07] MEDS: HALOPERIDOL 5 MG TAB PO ×2 (08:28→21:39)
[2018-09-07] MEDS: DONEPEZIL 5 MG TAB PO (08:28)
[2018-09-07] MEDS: BISOPROLOL FUMARATE 1.25MG PER 1/4 TABLET PO (08:28)
[2018-09-07] MEDS: QUEtiapine FUMARATE 50 MG TAB PO ×2 (08:29→21:39)
[2018-09-07] MEDS: AMIODARONE 200 MG TAB (PACERONE) PO (08:29)
[2018-09-07] MEDS: APIXABAN 5 MG TAB (ELIQUIS) PO ×2 (08:29→21:39)
[2018-09-07] MEDS: HYDROXYCHLOROQUINE 200 MG TAB PO ×2 (08:29→21:39)
[2018-09-07] MEDS: ACETAMINOPHEN TAB 650MG DOSE (2X325MG) PO ×2 (08:30→21:38)
[2018-09-07] MEDS: FAMOTIDINE 20 MG TAB PO (21:39)
[2018-09-08] MEDS: ACETAMINOPHEN TAB 650MG DOSE (2X325MG) PO ×3 (05:46→23:38)
[2018-09-08] MEDS: AMIODARONE 200 MG TAB (PACERONE) PO (09:20)
[2018-09-08] MEDS: APIXABAN 5 MG TAB (ELIQUIS) PO ×2 (09:20→20:23)
[2018-09-08] MEDS: BISOPROLOL FUMARATE 1.25MG PER 1/4 TABLET PO (09:21)
[2018-09-08] MEDS: HYDROXYCHLOROQUINE 200 MG TAB PO ×2 (09:21→20:23)
[2018-09-08] MEDS: QUEtiapine FUMARATE 50 MG TAB PO ×2 (09:21→20:23)
[2018-09-08] MEDS: HALOPERIDOL 5 MG TAB PO (09:22)
[2018-09-08] MEDS: DONEPEZIL 5 MG TAB PO (09:23)
[2018-09-08] MEDS: FAMOTIDINE 20 MG TAB PO (20:23)
[2018-09-09] MEDS: BISOPROLOL FUMARATE 1.25MG PER 1/4 TABLET PO (08:03)
[2018-09-09] MEDS: HYDROXYCHLOROQUINE 200 MG TAB PO ×2 (08:53→20:00)
[2018-09-09] MEDS: ACETAMINOPHEN TAB 650MG DOSE (2X325MG) PO ×2 (08:53→20:01)
[2018-09-09] MEDS: DONEPEZIL 5 MG TAB PO (08:53)
[2018-09-09] MEDS: QUEtiapine FUMARATE 50 MG TAB PO ×2 (08:53→20:00)
[2018-09-09] MEDS: AMIODARONE 200 MG TAB (PACERONE) PO (08:54)
[2018-09-09] MEDS: APIXABAN 5 MG TAB (ELIQUIS) PO ×2 (08:54→20:00)
[2018-09-09] MEDS: NYSTATIN 500,000 U/5 ML SUSP UDC SS ×3 (11:12→20:00)
[2018-09-09] MEDS: HALOPERIDOL 5 MG TAB PO (13:38)
[2018-09-09] MEDS: FAMOTIDINE 20 MG TAB PO (20:00)
[2018-09-10] MEDS: HALOPERIDOL 5 MG/ML VIAL (J1630) IM (03:17)
[2018-09-10] MEDS: BISOPROLOL FUMARATE 1.25MG PER 1/4 TABLET PO (09:00)
[2018-09-10] MEDS: NYSTATIN 500,000 U/5 ML SUSP UDC SS ×3 (10:15→21:04)
[2018-09-10] MEDS: QUEtiapine FUMARATE 50 MG TAB PO ×2 (10:15→21:04)
[2018-09-10] MEDS: AMIODARONE 200 MG TAB (PACERONE) PO (10:15)
[2018-09-10] MEDS: HYDROXYCHLOROQUINE 200 MG TAB PO ×2 (10:15→21:03)
[2018-09-10] MEDS: DONEPEZIL 5 MG TAB PO (10:15)
[2018-09-10] MEDS: APIXABAN 5 MG TAB (ELIQUIS) PO ×2 (10:16→21:04)
[2018-09-10] MEDS: FAMOTIDINE 20 MG TAB PO (21:04)
[2018-09-10] MEDS: ACETAMINOPHEN TAB 650MG DOSE (2X325MG) PO (21:05)
[2018-09-11] MEDS: NYSTATIN 500,000 U/5 ML SUSP UDC SS ×4 (08:28→21:01)
[2018-09-11] MEDS: HYDROXYCHLOROQUINE 200 MG TAB PO ×3 (08:28→21:01)
[2018-09-11] MEDS: QUEtiapine FUMARATE 50 MG TAB PO ×3 (08:28→21:02)
[2018-09-11] MEDS: APIXABAN 5 MG TAB (ELIQUIS) PO ×3 (08:28→21:01)
[2018-09-11] MEDS: AMIODARONE 200 MG TAB (PACERONE) PO (08:28)
[2018-09-11] MEDS: DONEPEZIL 5 MG TAB PO (08:28)
[2018-09-11] MEDS: BISOPROLOL FUMARATE 1.25MG PER 1/4 TABLET PO (08:29)
[2018-09-11 13:08] LABS: HEMATOCRIT 38.6 % (36.0-47.0); MEAN CORPUSCULAR HEMOGLOBIN 29.6 pg (27.0-33.0); MEAN CORPUSCULAR HGB CONC 31.1 g/dl (32.0-36.5); MEAN CORPUSCULAR VOLUME 95.3 fl (80.0-96.0); RED BLOOD COUNT 4.05 10^6/uL (4.00-5.40); WHITE BLOOD COUNT 4.9 10^3/uL (4.0-10.0)
[2018-09-11 13:37] LABS: PLATELET COUNT, AUTOMATED 81 10^3/uL (150-450)
[2018-09-11 13:38] LABS: IMMATURE PLATELET FRACTION % 2.2 % (0.0-9.6)
[2018-09-11 14:39] LABS: ALBUMIN 3.1 GM/DL (3.2-5.2); ALBUMIN/GLOBULIN RATIO 0.89 (1.00-1.93); ALKALINE PHOSPHATASE 78 U/L (45-117); ALT/SGPT 22 U/L (12-78); ANION GAP 8 MEQ/L (8-16); AST/SGOT 26 U/L (7-37); BILIRUBIN,TOTAL 0.3 MG/DL (0.2-1.0); BLOOD UREA NITROGEN 25 MG/DL (7-18); CALCIUM LEVEL 8.4 MG/DL (8.8-10.2); CARBON DIOXIDE LEVEL 27 MEQ/L (21-32); CHLORIDE LEVEL 109 MEQ/L (98-107); CREATININE FOR GFR 1.54 MG/DL (0.55-1.30); GLOMERULAR FILTRATION RATE 35.1 (>39); GLUCOSE, FASTING 85 MG/DL (70-100); POTASSIUM SERUM 4.8 MEQ/L (3.5-5.1); SODIUM LEVEL 144 MEQ/L (136-145); TOTAL PROTEIN 6.6 GM/DL (6.4-8.2)
[2018-09-11 15:06] LABS: APPEARANCE, URINE CLOUDY (CLEAR); BACTERIA, URINE AUTO NEGATIVE (NEGATIVE); BILIRUBIN, URINE AUTO NEGATIVE (NEGATIVE); BLOOD, URINE BLOOD 3+ (NEGATIVE); COLOR, URINE YELLOW (YELLOW); GLUCOSE, URINE (UA) AUTO NEGATIVE (NEGATIVE); KETONE, URINE AUTO NEGATIVE (NEGATIVE); LEUKOCYTE ESTERASE, URINE AUTO 1+ (NEGATIVE); MUCUS, URINE SMALL (NEGATIVE); NITRITE, URINE AUTO NEGATIVE (NEGATIVE); PROTEIN, URINE AUTO 2+ mg/dL (NEGATIVE); RBC, URINE AUTO TNTC /HPF (0-3); SPECIFIC GRAVITY URINE AUTO 1.017 (1.002-1.035); SQUAMOUS EPITHELIAL CELL UR AU 1 /HPF (0-6); UROBILINOGEN, URINE AUTO 0.2 mg/dL (0.0-2.0); WBC, URINE AUTO 26 /HPF (0-3)
[2018-09-11] MEDS: HALOPERIDOL 5 MG TAB PO (17:55)
[2018-09-11] MEDS: FAMOTIDINE 20 MG TAB PO ×2 (21:00→21:01)
[2018-09-11] MEDS: CEPHALEXIN 500 MG CAP PO ×2 (21:00→21:01)
[2018-09-12] MEDS: CEPHALEXIN 500 MG CAP PO ×2 (01:10→09:03)
[2018-09-12] MEDS: QUEtiapine FUMARATE 50 MG TAB PO ×2 (01:10→09:03)
[2018-09-12] MEDS: BISOPROLOL FUMARATE 1.25MG PER 1/4 TABLET PO (09:02)
[2018-09-12] MEDS: NYSTATIN 500,000 U/5 ML SUSP UDC SS (09:03)
[2018-09-12] MEDS: APIXABAN 5 MG TAB (ELIQUIS) PO (09:03)
[2018-09-12] MEDS: HYDROXYCHLOROQUINE 200 MG TAB PO (09:03)
[2018-09-12] MEDS: AMIODARONE 200 MG TAB (PACERONE) PO (09:03)
[2018-09-12] MEDS: DONEPEZIL 5 MG TAB PO (09:03)
== END 2018-09-12 11:20 | DRG 660 ==
LOC: M ED 12:05 → M ED INP 15:42 → M MS5PR 18:00
PROC: 0T778DZ Dilation of Left Ureter with Intraluminal Device, Via Natural or Artificial Opening Endoscopic (ICD-10-PCS; principal; 2018-08-30 12:00)
DX: N13.2 Hydronephrosis with renal and ureteral calculous obstruction (principal); F03.91 Unspecified dementia, unspecified severity, with behavioral disturbance; N17.9 Acute kidney failure, unspecified; I48.91 Unspecified atrial fibrillation; I10 Essential (primary) hypertension; I35.0 Nonrheumatic aortic (valve) stenosis; Z95.2 Presence of prosthetic heart valve; Z79.01 Long term (current) use of anticoagulants; Z79.899 Other long term (current) drug therapy; M34.9 Systemic sclerosis, unspecified